=== PATIENT | female | born 1965 | race Caucasian/White ===

== ENCOUNTER → 2018-05-26 18:47 | Outpatient (CLI) | payer MEDICARE, MEDICAID ==
[2018-05-26 19:17] LABS: T4 THYROXINE 11.3 ug/dL (4.7-13.3); THYROID STIMULATING HORMONE 0.9 uIU/mL (0.36-3.74)
== END | disposition home or self-care (01) ==
LOC: D.LABREF 18:47
PROVIDERS: Internal Medicine Cardiovascular Disease
DX: I10 Essential (primary) hypertension (principal)

== ENCOUNTER → 2019-02-19 08:51 | Outpatient (CLI) | payer MEDICARE, MEDICAID | END | disposition home or self-care (01) | LOC: D.HCCARDIO 08:51 | PROVIDERS: ATTEND Internal Medicine Cardiovascular Disease | DX: I10 Essential (primary) hypertension (principal) ==

== ENCOUNTER 2020-01-03 18:42 | Inpatient (IN) | payer MEDICARE, MEDICAID ==
[~2020-01-03] VITALS: Ht 157.5 cm; Wt 63.6 kg
[2020-01-03] MEDS ORDERED: PACERONE200 MG PO (18:49)
[2020-01-03] MEDS ORDERED: KLONOPIN1 MG PO (18:49)
[2020-01-03] MEDS ORDERED: TOPROL XL25 MG PO (18:49)
[2020-01-03] MEDS ORDERED: TRAZODONE HCL150 MG PO (18:49)
[2020-01-03 19:30] LABS: BASOPHILS 0.4 % (0-2); EOSINOPHILS 2.3 % (0-7); HEMATOCRIT 33.7 % (36.0-48.0); HEMOGLOBIN 10.2 g/dL (12-16); IMMATURE GRANULOCYTES 0.3 % (0-5); MCHC 30.3 g/dL (31.0-37.0); MCV 63.8 fL (80.0-100.0); MEAN PLATELET VOLUME 9.3 fL (7.4-10.4); MONOCYTES 4.7 % (2-11); NEUTROPHILS 67.3 % (40-80); PLATELET COUNT 193 10x3/uL (130-400); RBC 5.28 10x6/uL (4.00-5.40); RDW 15.6 % (11.5-14.5); WBC 7.5 10x3/uL (4.8-10.8)
[2020-01-03 19:31] VITALS: BP 143/84
[2020-01-03 19:33] LABS: MCH 19.3 pg (26.0-34.0)
[2020-01-03 19:40] LABS: INR 0.93 (0.85-1.17); PROTIME 12.4 SECONDS (11.6-15.0)
[2020-01-03 19:41] LABS: APTT 33.5 SECONDS (22.8-39.4)
[2020-01-03 19:56] LABS: CALC OSMOLALITY 288 mosm/kg (275-300); CALCIUM 8.7 mg/dL (8.5-10.1); CARBON DIOXIDE 26.7 mmol/L (21.0-32.0); CHLORIDE - SERUM 109 mmol/L (98-107); CREATININE - SERUM 1.1 mg/dL (0.6-1.3); GLUCOSE 99 mg/dL (74-106); POTASSIUM - SERUM 3.3 mmol/L (3.5-5.1); SODIUM 146 mmol/L (136-145); UREA NITROGEN 8 mg/dL (7-18); eGFR NON AFRICAN AMERICAN 55 mL/min (90-120)
[2020-01-03 20:13] LABS: ALBUMIN 3.2 g/dL (3.4-5.0); ALKALINE PHOSPHATASE 84 U/L (30-120); ALT (SGPT) 20 U/L (10-68); BILIRUBIN - TOTAL 0.31 mg/dL (0.2-1.3); CKMB 0.3 U/L (0.0-3.6); CREATINE KINASE 38 UL (21-215); PRO BNP 355 pg/mL (0-125); PROTEIN - SERUM 6.8 g/dL (6.4-8.2)
[2020-01-03 20:14] LABS: TROPONIN-I < 0.017 ng/mL (0.000-0.060)
[2020-01-03 20:25] VITALS: BP 158/89
--- NOTE | 2020-01-03 20:25 | NUR ---
PT LAYING IN BED. VSS. RESPIRAITONS ARE EVEN AND UNLABORED. NO DISTRESS NOTED. WILL CONTINUE TO MONITOR PATIENT.
[2020-01-04] VITALS (7 sets, daily range): BP systolic 127–161; BP diastolic 73–94; Ht 157.5 cm; Wt 63.6 kg
--- NOTE | 2020-01-04 00:30 | NUR ---
ADMITTED TO MED SURG UNIT.
[2020-01-04] MEDS ORDERED: HYDROCODON-ACE1 EA10 PO (00:48)
[2020-01-04] MEDS ORDERED: ABILIFY10 MG PO (00:51)
--- NOTE | 2020-01-04 01:00 | NUR ---
TOUCH UP WORKER DENIED TELEMETRY AT THIS TIME.
--- NOTE | 2020-01-04 01:41 | NUR ---
DR. JACKSON NOTIFIED AND REVIEWED PT'S BEHAVIOR AND ASSESSMENT RESULTS. PT IS A LOW RISK PER DR. JACKSON. DR. JACKSON STATED TO GIVE RESOURCES TO PT AT TIME OF DISCHARGE. NO FURTHER ORDERS AT THIS TIME. RESOURCES REVIEWED WITH PT AND SHE VERBALIZED UNDERSTANDING.
--- NOTE | 2020-01-04 07:27 | NUR ---
PT K+ IS 3.3 THIS MORNING, ADDED EP TO PT MAR AND WILL REPLACE K+. NO OTHER NEEDS AT THIS TIME VOICED BY PT, WILL CONTINUE WITH PLAN OF CARE
[2020-01-04 09:21] LABS: BASOPHILS 0 % (0-2); EOSINOPHILS 0 % (0-7); HEMATOCRIT 35.2 % (36.0-48.0); HEMOGLOBIN 10.7 g/dL (12-16); IMMATURE GRANULOCYTES 0.8 % (0-5); LYMPHOCYTES 9.7 % (15-50); MCHC 30.4 g/dL (31.0-37.0); MCV 62.9 fL (80.0-100.0); MEAN PLATELET VOLUME 9.4 fL (7.4-10.4); MONOCYTES 0.7 % (2-11); NEUTROPHILS 88.8 % (40-80); PLATELET COUNT 206 10x3/uL (130-400); RDW 15.7 % (11.5-14.5); WBC 7.3 10x3/uL (4.8-10.8)
--- NOTE | 2020-01-04 09:21 | NUR ---
PT INQUIRED ON PAIN MEDICATION WELL HOME MEDS BEING RESTARTED PT STATED SHE NEEDS HER ANXIETY MEDICATION BUT WAS UNABLE TO TELL ME DOSAGE ON THAT WELL ANOTHER MEDICATION SHE IS ON. TOLD PT I WILL CALL HER PHARMACY TO GET CORRECT DOSAGE SO WE MAY RESTART HER MEDICATIONS. ASSISTED PT TO RESTROOM, NO OTHER NEEDS VOICED, RAYNAMTINUE WITH PLAN OF CARE
[2020-01-04 09:22] LABS: MCH 19.1 pg (26.0-34.0)
[2020-01-04 09:35] LABS: ALBUMIN 3.2 g/dL (3.4-5.0); ANION GAP 12.4 mmol/L (8-16); BILIRUBIN - TOTAL 0.3 mg/dL (0.2-1.3); CALCIUM 9.1 mg/dL (8.5-10.1); CREATININE - SERUM 1.1 mg/dL (0.6-1.3); POTASSIUM - SERUM 3.4 mmol/L (3.5-5.1); PROTEIN - SERUM 7.3 g/dL (6.4-8.2)
[2020-01-04] MEDS ORDERED: PREVALITE POWD231 GM PO (21:40)
[2020-01-04] MEDS ORDERED: KEPPRA1000 MG PO (21:40)
--- NOTE | 2020-01-04 21:48 | NUR ---
PAGED MARLA RILEY APN PER PT REQUEST FOR HOME MEDS THAT SHE WANTS. SEE MAR FOR NEW ORDERS.
[2020-01-05 01:07] VITALS: BP 130/77
[2020-01-05 06:00] VITALS: BP 141/87
[2020-01-05 07:04] LABS: BASOPHILS 0.1 % (0-2); EOSINOPHILS 0.4 % (0-7); HEMATOCRIT 31.8 % (36.0-48.0); HEMOGLOBIN 9.3 g/dL (12-16); IMMATURE GRANULOCYTES 0.4 % (0-5); LYMPHOCYTES 33.7 % (15-50); MCHC 29.2 g/dL (31.0-37.0); MCV 64.5 fL (80.0-100.0); MEAN PLATELET VOLUME 9.2 fL (7.4-10.4); MONOCYTES 4.6 % (2-11); NEUTROPHILS 60.8 % (40-80); PLATELET COUNT 199 10x3/uL (130-400); RBC 4.93 10x6/uL (4.00-5.40); RDW 15.8 % (11.5-14.5); WBC 7.2 10x3/uL (4.8-10.8)
[2020-01-05 07:05] LABS: MCH 18.9 pg (26.0-34.0)
[2020-01-05 07:33] LABS: ALBUMIN 2.9 g/dL (3.4-5.0); ANION GAP 13.3 mmol/L (8-16); BILIRUBIN - TOTAL 0.23 mg/dL (0.2-1.3); CALCIUM 8.4 mg/dL (8.5-10.1); CARBON DIOXIDE 25.9 mmol/L (21.0-32.0); CREATININE - SERUM 1.1 mg/dL (0.6-1.3); POTASSIUM - SERUM 3.2 mmol/L (3.5-5.1); PROTEIN - SERUM 5.9 g/dL (6.4-8.2)
--- NOTE | 2020-01-05 08:00 | NUR ---
PATIENT IN BED WITH IV INTACT. EYES CLOSED RESTING QUIETLY. CALL LIGHT WITHIN REACH.
[2020-01-05 09:12] VITALS: BP 152/85
--- NOTE | 2020-01-05 10:05 | MORECARE ---
CASE MANAGEMENT DISCHARGE SUMMARY PATIENT: SJ POWELL UNIT: [id number] ADM DATE: 01/03/20 AGE: 54 : 63 SEX: F ROOM/BED: D.2223 AUTHOR: LINDEN LAWS PHYSICIAN: REFERRING PHYSICIAN: MELODY SALINAS MD DATE OF SERVICE: 01/05/20 Discharge Plan Patient Name: SJ POWELL Facility: [facility]:[place] : 1965 Planned Disposition: Home Anticipated Discharge Date: Discharge Date: Expected LOS: Initial Reviewer: [email or web address] Initial Review Date: 01/05/2020 Generated: 01/05/20 11:04 am Patient Name: SJ POWELL Page 97790 at 1005 All edits/amendments must be made on the electronic document DICTATION DATE: 01/05/20 1004 FABRIC INSPECTOR: STORM 01/05/20 1004 RPT#: [id number] DC DATE: STATUS: ADM IN [facility] [address] [place] [address] END OF REPORT
--- NOTE | 2020-01-05 10:13 | MORECARE ---
CASE MANAGEMENT DISCHARGE SUMMARY PATIENT: SJ POWELL UNIT: [id number] ADM DATE: 01/03/20 AGE: 54 : 63 SEX: F ROOM/BED: D.2223 AUTHOR: EUSEBIA,DOC PHYSICIAN: REFERRING PHYSICIAN: MELODY SALINAS MD DATE OF SERVICE: 01/05/20 Discharge Plan Patient Name: SJ POWELL Facility: [facility]:[place] : 1965 Planned Disposition: Home Anticipated Discharge Date: Discharge Date: Expected LOS: Initial Reviewer: [email or web address] Initial Review Date: 01/05/2020 Generated: 01/05/20 11:13 am Comments DCP- Discharge Planning Updated by [email or web address]: Katerine Bey on 01/05/20 9:[address] Patient Name: SJ POWELL Admission Status: ER Accout number: [id number] Admission Date: 01-03-2020 : 1965 Admission Diagnosis: Attending: MELODY SALINAS Current LOS: 2 Anticipated DC Date: Planned Disposition: Home Primary Insurance: [facility] MEDICARE SOLUTIONS Discharge Planning Comments: CM met with patient to complete initial dc planning assessment. CM educated patient on the CM role and verbal consent given by patient to complete assessment. Patient lives at home with her fianc?e. At discharge patient plans to return and feels this is a safe discharge. Home address and phone number verified on face sheet. CM discussed availability of home health, rehab services, and medical equipment. Patient denied known discharge needs at this time. States she wears oxygen at 2 liters NC at night and has a nebulizer from [employer]. CM will continue to follow and will assist as needed with dc plans/needs. Client Evaluator: Katerine Bey DCPIA - Discharge Planning Initial Assessment Updated by [email or web address]: Katerine Bey on 01/05/20 10:05 am * Is the patient Alert and Oriented? Yes * How many steps to enter\exit or inside your home? 0/0 * PCP Dr. Teixeira * Pharmacy [facility] * Preadmission Environment Home with Family * ADLs Independent * Equipment Nebulizer Oxygen * List name and contact numbers for known caregivers / representatives who currently or will assist patient after discharge: Juan M Ochoa - No phone Nani Penn - DTR - [phone] * Verbal permission to speak to the caregivers and representatives has been obtained from the patient. Yes * Community resources currently utilized None * Please name any agencies selected above. [employer] is DME for oxygen and nebulizer * Additional services required to return to the preadmission environment? No * Can the patient safely return to the preadmission environment? Yes * Has this patient been hospitalized within the prior 30 days at any hospital? No Last DP export: 01/05/20 9:05 a Patient Name: SJ POWELL Page 97924 at 1013 All edits/amendments must be made on the electronic document DICTATION DATE: 01/05/20 1013 DISTRICT MEDICAL EXAMINER: STORM 01/05/20 1013 RPT#: [id number] DC DATE: STATUS: ADM IN [facility] [address] [place] [address] END OF REPORT
[2020-01-05] MEDS ORDERED: MUCINEX600 MG PO (12:21)
[2020-01-05] MEDS ORDERED: FLORAJEN3 CAPS460 MG PO (12:21)
[2020-01-05] MEDS ORDERED: ZITHROMAX500 MG PO (12:21)
[2020-01-05] MEDS ORDERED: TESSALON PERLE100 MG PO (12:21)
[2020-01-05] MEDS ORDERED: OMNICEF300 MG PO (12:22)
[2020-01-05] MEDS ORDERED: Nicoderm [PBKC] TRANSDERM (12:22)
--- NOTE | 2020-01-05 12:53 | MORECARE ---
CASE MANAGEMENT DISCHARGE SUMMARY PATIENT: SJ POWELL UNIT: [id number] ADM DATE: 01/03/20 AGE: 54 : 63 SEX: F ROOM/BED: D.2223 AUTHOR: EUSEBAI,DOC PHYSICIAN: REFERRING PHYSICIAN: MELODY SALINAS MD DATE OF SERVICE: 01/05/20 Discharge Plan Patient Name: SJ POWELL Facility: [facility]:[place] : 1965 Planned Disposition: Home Anticipated Discharge Date: Discharge Date: Expected LOS: Initial Reviewer: [email or web address] Initial Review Date: 01/05/2020 Generated: 01/05/20 1:53 pm Comments DCP- Discharge Planning Updated by [email or web address]: Katerine Bey on 01/05/20 11:[address] Patient Name: SJ POWELL Encounter No: [id number] : 1965 Primary Insurance: [facility] MEDICARE SOLUTIONS Anticipated DC Date: Planned Disposition: Home External Planned Provider: : DCP follow-up note: Patient in agreement with discharge plan. No changes to plan. Case management will follow and assist as needed. Katerine Bey DCP- Discharge Planning Updated by [email or web address]: Katerine Bey on 01/05/20 9:[address] Patient Name: SJ POWELL Admission Status: ER Accout number: [id number] Admission Date: 01-03-2020 : 1965 Admission Diagnosis: Attending: MELODY SALINAS Current LOS: 2 Anticipated DC Date: Planned Disposition: Home Primary Insurance: [facility] MEDICARE SOLUTIONS Discharge Planning Comments: CM met with patient to complete initial dc planning assessment. CM educated patient on the CM role and verbal consent given by patient to complete assessment. Patient lives at home with her fianc?e. At discharge patient plans to return and feels this is a safe discharge. Home address and phone number verified on face sheet. CM discussed availability of home health, rehab services, and medical equipment. Patient denied known discharge needs at this time. States she wears oxygen at 2 liters NC at night and has a nebulizer from [employer]. CM will continue to follow and will assist as needed with dc plans/needs. Threshing Machine Operator: Katerine Bey DCPIA - Discharge Planning Initial Assessment Updated by [email or web address]: Katerine Maida on 01/05/20 10:05 am * Is the patient Alert and Oriented? Yes * How many steps to enter\exit or inside your home? 0/0 * PCP Dr. Teixeira * Pharmacy [facility] * Preadmission Environment Home with Family * ADLs Independent * Equipment Nebulizer Oxygen * List name and contact numbers for known caregivers / representatives who currently or will assist patient after discharge: Juan M Valerio - Gabriela - No phone Nani Penn - DTR - [phone] * Verbal permission to speak to the caregivers and representatives has been obtained from the patient. Yes * Community resources currently utilized None * Please name any agencies selected above. [employer] is DME for oxygen and nebulizer * Additional services required to return to the preadmission environment? No * Can the patient safely return to the preadmission environment? Yes * Has this patient been hospitalized within the prior 30 days at any hospital? No Last DP export: 01/05/20 9:13 a Patient Name: SJ POWELL Page 19846 at 1253 All edits/amendments must be made on the electronic document DICTATION DATE: 01/05/20 125 DOOR CAPTAIN: STORM 01/05/20 1253 RPT#: [id number] DC DATE: STATUS: ADM IN [facility] [address] [place] [address] END OF REPORT
--- NOTE | 2020-01-05 14:47 | NUR ---
PATIENT RECIEVED DC INSTRUCTIONS. NO QUESTIONS AT THIS TIME. IV REMOVED WITH CATH TIP INTACT. EXPLAINED TO AIRPLANE RIGGER PRESCRIPTIONS FROM [facility]. VERBALIZED UNDERSTANDING. FAMILY AT SIDE. CALL LIGHT WITHIN REACH.
--- NOTE | 2020-01-05 15:05 | NUR ---
ESCORTED PATIENT OUT OF HOSPITAL VIA WC AT THIS TIME WITH PERSONAL BELONGINGS TO PRIVATE VEHICLE WITH FAMILY.
--- NOTE | 2020-01-07 08:19 | MORECARE ---
CASE MANAGEMENT DISCHARGE SUMMARY PATIENT: SJ POWELL UNIT: [id number] ADM DATE: 01/03/20 AGE: 54 : 63 SEX: F ROOM/BED: D.2223 AUTHOR: EUSEBIA,DOC PHYSICIAN: REFERRING PHYSICIAN: MELODY SALINAS MD DATE OF SERVICE: 01/07/20 Discharge Plan Patient Name: SJ POWELL Facility: [facility]:[place] : 1965 Planned Disposition: Home Anticipated Discharge Date: Discharge Date: 01/05/2020 Expected LOS: Initial Reviewer: [email or web address] Initial Review Date: 01/05/2020 Generated: 01/07/20 9:18 am Comments DCP- Discharge Planning Updated by [email or web address]: Katerine Bey on 01/05/20 11:[address] Patient Name: SJ POWELL Encounter No: [id number] : 1965 Primary Insurance: [facility] MEDICARE SOLUTIONS Anticipated DC Date: Planned Disposition: Home External Planned Provider: : DCP follow-up note: Patient in agreement with discharge plan. No changes to plan. Case management will follow and assist as needed. Katerine Bey DCP- Discharge Planning Updated by [email or web address]: Katerine Bey on 01/05/20 9:[address] Patient Name: SJ POWELL Admission Status: ER Accout number: [id number] Admission Date: 01-03-2020 : 1965 Admission Diagnosis: Attending: MELODY SALINAS Current LOS: 2 Anticipated DC Date: Planned Disposition: Home Primary Insurance: [facility] MEDICARE SOLUTIONS Discharge Planning Comments: CM met with patient to complete initial dc planning assessment. CM educated patient on the CM role and verbal consent given by patient to complete assessment. Patient lives at home with her fianc?e. At discharge patient plans to return and feels this is a safe discharge. Home address and phone number verified on face sheet. CM discussed availability of home health, rehab services, and medical equipment. Patient denied known discharge needs at this time. States she wears oxygen at 2 liters NC at night and has a nebulizer from [employer]. CM will continue to follow and will assist as needed with dc plans/needs. Service Representative: Katerine Bey DCPIA - Discharge Planning Initial Assessment Updated by [email or web address]: Katerine Maida on 01/05/20 10:05 am * Is the patient Alert and Oriented? Yes * How many steps to enter\exit or inside your home? 0/0 * PCP Dr. Teixeira * Pharmacy [facility] * Preadmission Environment Home with Family * ADLs Independent * Equipment Nebulizer Oxygen * List name and contact numbers for known caregivers / representatives who currently or will assist patient after discharge: Juan M Ochoa - No phone Nani Penn - DTR - [phone] * Verbal permission to speak to the caregivers and representatives has been obtained from the patient. Yes * Community resources currently utilized None * Please name any agencies selected above. [employer] is DME for oxygen and nebulizer * Additional services required to return to the preadmission environment? No * Can the patient safely return to the preadmission environment? Yes * Has this patient been hospitalized within the prior 30 days at any hospital? No Last DP export: 01/05/20 11:53 a Patient Name: SJ POWELL Page 22941 at 0819 All edits/amendments must be made on the electronic document DICTATION DATE: 01/07/20817 DATA SECURITY ANALYST: STORM 01/07/20817 RPT#: [id number] DC DATE:01/05/20 STATUS: DIS IN [facility] [address] [place] [address] END OF REPORT
== END 2020-01-05 15:13 | disposition home or self-care (01) | DRG 193 ==
LOC: D.ER 18:42 → D.MS 23:42
PROVIDERS: Family Medicine; ADMIT Internal Medicine Nephrology; ATTEND Internal Medicine Nephrology
DX: J18.9 Pneumonia, unspecified organism (principal); J96.21 Acute and chronic respiratory failure with hypoxia; F17.203 Nicotine dependence unspecified, with withdrawal; E87.1 Hypo-osmolality and hyponatremia; I50.32 Chronic diastolic (congestive) heart failure; J40 Bronchitis, not specified as acute or chronic; D50.9 Iron deficiency anemia, unspecified; I11.0 Hypertensive heart disease with heart failure; E78.5 Hyperlipidemia, unspecified; I27.20 Pulmonary hypertension, unspecified; M54.9 Dorsalgia, unspecified; F41.8 Other specified anxiety disorders; F43.10 Post-traumatic stress disorder, unspecified

== ENCOUNTER 2021-01-07 16:20 | Emergency (ER) | payer MEDICARE, MEDICAID ==
[~2021-01-07] VITALS: Ht 157.5 cm; Wt 68.2 kg
[~2021-01-07 16:20] MED LIST: ABILIFY10 MG PO; FLORAJEN3 CAPS460 MG PO; HYDROCODON-ACE1 EA10 PO; KEPPRA1000 MG PO; KLONOPIN1 MG PO; MUCINEX600 MG PO; Nicoderm [PBKC] TRANSDERM; OMNICEF300 MG PO; PACERONE200 MG PO; PREVALITE POWD231 GM PO; TESSALON PERLE100 MG PO; TOPROL XL25 MG PO; TRAZODONE HCL150 MG PO; ZITHROMAX500 MG PO
[2021-01-07 16:25] VITALS: BP 113/64; Ht 157.5 cm; Wt 68.2 kg
== END 2021-01-07 17:16 | disposition home or self-care (01) ==
LOC: D.ER 16:20
DX: M25.561 Pain in right knee (principal); I10 Essential (primary) hypertension; Z86.73 Personal history of transient ischemic attack (TIA), and cerebral infarction without residual deficits; J44.9 Chronic obstructive pulmonary disease, unspecified; Z99.81 Dependence on supplemental oxygen; Z72.0 Tobacco use; X50.1XXA Overexertion from prolonged static or awkward postures, initial encounter; Y93.9 Activity, unspecified; Y92.9 Unspecified place or not applicable

== ENCOUNTER 2021-01-10 08:36 | Inpatient (IN) | payer MEDICARE, MEDICAID ==
[~2021-01-10] VITALS: Ht 157.5 cm; Wt 68.0 kg
--- NOTE | ~2021-01-10 | EC ---
PATIENT:SJ POWELL DATE OF SERVICE: 01/10/21 SEX: F MEDICAL RECORD: [id number] DATE OF : [birth year] LOCATION:D.M2 D.214 AGE OF PATIENT: 55 ADMISSION DATE: 01/10/21 REFERRING PHYSICIAN: INTERPRETING PHYSICIAN: AWILDA SOLO MD ECHOCARDIOGRAM REPORT ECHO CHARGES 4 ECHO COMPLETE Date: 01/13/21 CLINICAL DIAGNOSIS: SOB, EDEMA, HYPOXIA ECHOCARDIOGRAPHIC MEASUREMENTS (adult normal given) AC root (d.<3.7cm) 3.0 cm LV Septum d (<1.2 cm> 0.7 cm Valve Excursion 1.6 cm LV Septum (systole) 1.4 cm Left Atria (s.<4.0cm> 4.1 cm LVPW d(<1.2cm) 1.1 cm RV (d.<2.3cm) 3.3 cm LVPW (sytole) 1.2 cm LV diastole(<5.6CM) 5.6 cm MV E-F(>70mm/sec) cm LV systole 3.6 cm LVOT Diameter 1.8 cm MV exc.(>10mm) 1.5 cm Est.ejection fraction (50-75%) % DOPPLER: LVIT cm/sec A 128 cm/sec E 111 cm/sec LA cm/sec RVSP 33 mmHg LVOT 118 cm/sec AOP1/2T m/s Asc. Ao 170 cm/sec RVOT 87 cm/sec RA cm/sec PA 120 cm/sec AV Gradient Peak 11.5 mmHg AV Mean 7.1 mmHg AV Area 1.6 cm MV Gradient Peak 8.8 mmHg MV Mean 4.7 mmHg MV Area cm COMMENTS: Turning Machine Operator Helper: Yesenia LOPEZ [employer] Barista: 4 Dr. Solo TAPE# Pericardial Effusion N DATE OF SERVICE: Transthoracic echocardiogram FINDINGS: 1. The left ventricle has normal function, ejection fraction 55%. There is mild concentric left ventricular hypertrophy. There is evidence of diastolic dysfunction. 2. The right ventricle is mildly dilated with normal function. 3. The left atrium is mildly dilated. ECHOCARDIOGRAM REPORT [id number] SJ POWELL 4. The right atrium is mildly dilated, but normal structure and function. 5. The aortic valve is normal structure and function. 6. The mitral valve has normal structure and function with mild mitral regurgitation. 7. The tricuspid valve is normal. 8. Pulmonic valve is normal. There is no obvious ASD or VSD vegetation or thrombus. There is no pleural effusion. There is no evidence of pericardial effusion. IMPRESSION: The patient has mild concentric left ventricular hypertrophy and mild diastolic dysfunction but otherwise normal echocardiogram. TRANSINT:[id number] Voice Confirmation ID: [id number] DOCUMENT ID: [id number] AWILDA SOLO MD CC: [id number] DICTATION DATE: 01/15/21 1327 HYSTER MACHINE OPERATOR: 01/15/212118 ADM IN [place] [id number] [place] [id number]
[2021-01-10] MEDS ORDERED: ZOVIRAX200 MG (08:48)
[2021-01-10] MEDS ORDERED: METOPROLOL TART50 MG (08:48)
[2021-01-10 09:24] LABS: BASOPHILS 0.1 % (0-2); EOSINOPHILS 1.7 % (0-7); HEMATOCRIT 32.8 % (36.0-48.0); HEMOGLOBIN 10.3 g/dL (12-16); IMMATURE GRANULOCYTES 0.1 % (0-5); LYMPHOCYTE ABS# 1.44 10x3/uL (1.18-3.74); LYMPHOCYTES 20.7 % (15-50); MCHC 31.4 g/dL (31.0-37.0); MCV 61.7 fL (80.0-100.0); MONOCYTES 6.6 % (2-11); NEUTROPHIL ABS# 4.92 10x3/uL (1.56-6.13); NEUTROPHILS 70.8 % (40-80); PLATELET COUNT 198 10x3/uL (130-400); RBC 5.32 10x6/uL (4.00-5.40); RDW 15.3 % (11.5-14.5)
[2021-01-10 09:28] LABS: MCH 19.4 pg (26.0-34.0)
[2021-01-10 09:37] LABS: ALBUMIN 2.5 g/dL (3.4-5.0); ALKALINE PHOSPHATASE 97 U/L (30-120); ALT (SGPT) 20 U/L (10-68); BILIRUBIN - TOTAL 0.64 mg/dL (0.2-1.3); CALC OSMOLALITY 289 mosm/kg (275-300); CARBON DIOXIDE 29.9 mmol/L (21.0-32.0); CHLORIDE - SERUM 105 mmol/L (98-107); CKMB 0.1 U/L (0.0-3.6); CREATINE KINASE 73 UL (21-215); CREATININE - SERUM 1.5 mg/dL (0.6-1.3); GLUCOSE 102 mg/dL (74-106); PRO BNP 3217 pg/mL (0-125); PROTEIN - SERUM 5.9 g/dL (6.4-8.2); SODIUM 146 mmol/L (136-145); TROPONIN-I < 0.017 ng/mL (0.000-0.060); UREA NITROGEN 11 mg/dL (7-18); eGFR NON AFRICAN AMERICAN 38 mL/min (90-120)
[2021-01-10 09:38] LABS: POTASSIUM - SERUM 2.3 mmol/L (3.5-5.1)
[2021-01-10 09:59] LABS: INR 1.21 (0.85-1.17); PROTIME 14.2 SECONDS (11.6-15.0)
[2021-01-10 10:00] LABS: APTT 42.2 SECONDS (22.8-39.4)
[2021-01-10 14:02] LABS: SARS-CoV-2 ANTIGEN NEGATIVE- SARS-COV-2 (NEGATIVE)
--- NOTE | 2021-01-10 15:00 | NUR ---
RECEIVED PATIENT BACK FROM ER VIA WHEELCHAIR. PATIENT WALKS WELL FROM CHAIR TO BED. PLAN OF CARE REVIEWED AND ASSESSMENT HAS BEEN COMPLETED. PATIENT IS SLOW TO SPEAK AND ANSWER QUESTIONS. CALL LIGHT IN REACH.
[2021-01-10 15:58] VITALS: BP 139/79; BMI 27.5
[2021-01-10 20:00] VITALS: BP 121/69
[2021-01-11 04:00] VITALS: BP 136/67
--- NOTE | 2021-01-11 06:20 | NUR ---
Pt is A&OX3, can be confused as to time. Verbalizes wants/needs but does have some difficulty and hesitation with same. Using call light appropriately to request assist. Continues on O2 via NC without dyspnea observed. Does have some SOBOE to the bathroom. In bed resting at this time.
[2021-01-11 06:25] LABS: ANION GAP 12.6 mmol/L (8-16); CALCIUM 8.2 mg/dL (8.5-10.1); CARBON DIOXIDE 26.8 mmol/L (21.0-32.0); CREATININE - SERUM 1.1 mg/dL (0.6-1.3); MAGNESIUM - SERUM 1.9 mg/dL (1.8-2.4); PHOSPHOROUS 3.3 mg/dL (2.5-4.9)
[2021-01-11 06:26] LABS: POTASSIUM - SERUM 2.4 mmol/L (3.5-5.1)
[2021-01-11 06:29] LABS: BASOPHILS 0 % (0-2); EOSINOPHILS 0 % (0-7); HEMATOCRIT 29.7 % (36.0-48.0); HEMOGLOBIN 9.5 g/dL (12-16); IMMATURE GRANULOCYTES 0.3 % (0-5); LYMPHOCYTE ABS# 0.49 10x3/uL (1.18-3.74); LYMPHOCYTES 13.8 % (15-50); MCH 19.5 pg (26.0-34.0); MCV 61.1 fL (80.0-100.0); NEUTROPHILS 81.9 % (40-80); PLATELET COUNT 175 10x3/uL (130-400); RBC 4.86 10x6/uL (4.00-5.40); RDW 15.2 % (11.5-14.5); WBC 3.5 10x3/uL (4.8-10.8)
--- NOTE | 2021-01-11 06:37 | NUR ---
Pt has a critical k+ of 2.4. Patsy GARCIA paged o/c for . NO rec'd to place on electrolyte protocol.
[2021-01-11 07:59] VITALS: BP 125/67
--- NOTE | 2021-01-11 08:09 | NUR ---
PO MEDS GIVEN TO PATIENT AT THIS TIME. SHES SITTING UP TO SIDE OF BED. IV IS BAD. NURSE TO RESTART SOON. PLAN OF CARE REVIEWED AND ASSESSMENT HAS BEEN COMPLETED. CALL LIGHT IN REACH
--- NOTE | 2021-01-11 09:40 | NUR ---
NURSE TALKS WITH PT AFTER SHE MENTIONS TAKING DIARRHEA MEDICATION. NURSE CALLS HER PHARMACY AND CALLS MD FOR ORDER OF MED THAT PATIENT TAKES AT HOME.
--- NOTE | 2021-01-11 10:33 | NUR ---
NURSE CLEANS STOMA SITE AND PUTS NEW WAFER AND BAG ON COLOSTOMY. PATIENT IS WHEEZING AT THIS TIME. STATES SHE IS HAVING A HARD TIME BREATHING. NURSE TO CALL .
--- NOTE | 2021-01-11 10:35 | NUR ---
NURSE TALKS WITH CHAR MARR AND HE ORDER ALBUTEROL UPDRAFT, BID PRN
[2021-01-11 10:52] VITALS: BP 112/61
--- NOTE | 2021-01-11 11:09 | NUR ---
NURSE WALKS PATIENT TO RESTROOM. PATIENT IS ABLE TO DO ALL THINGS FOR SELF, BUT JUST SLOWLY. PATIENT DID HAVE A LITTLE INCONTINENCE. CALL LIGHT IN REACH ONCE PATIENT BACK IN BED.
--- NOTE | 2021-01-11 13:19 | NUR ---
PATIENT'S DAUGHTER BEAN HODGE HAS CALLED TO TALK TO NURSE ABOUT PATIENT.NURSE GOT THE OKAY FROM PATIENT.
--- NOTE | 2021-01-11 13:45 | NUR ---
RIGHT UPPER ARM 20 GAUGE. ULTRASOUND GUIDED.
[2021-01-11 14:58] VITALS: Ht 157.5 cm; Wt 68.0 kg
[2021-01-11 15:44] VITALS: BP 120/69
[2021-01-11 20:00] VITALS: BP 124/71
--- NOTE | 2021-01-11 20:22 | NUR ---
LAB CALLED CRITICAL K+. IV K+ STARTED. PT A/O X4. RR E/U. NO S/S OF DISTRESS. TELE-71 SR. BED LOW CALL LIGHT WITHIN REACH. WILL CONTINUE TO MONITOR.
--- NOTE | 2021-01-12 02:28 | NUR ---
I have reviewed this patient and I concur with the Shift Assessment completed by the Licensed Practical Nurse today this shift.
[2021-01-12 04:00] VITALS: BP 125/70
--- NOTE | 2021-01-12 07:00 | NUR ---
Lying in bed, awake/alert/oriented, t/r self ad kashmir, cont of b/b with brp's with assist ad kashmir, denies pain/other discomfort at this time, call light/phone/water within reach, no s/s of acute distress observed.
[2021-01-12 07:17] LABS: C-REACTIVE PROTEIN 5.8 mg/dL (0.0-0.9)
[2021-01-12 09:57] VITALS: BP 125/65
[2021-01-12 10:04] LABS: BASOPHILS 0 % (0-2); EOSINOPHILS 0 % (0-7); HEMATOCRIT 28.8 % (36.0-48.0); IMMATURE GRANULOCYTES 0.5 % (0-5); LYMPHOCYTE ABS# 0.62 10x3/uL (1.18-3.74); LYMPHOCYTES 7.2 % (15-50); MCHC 31.3 g/dL (31.0-37.0); MCV 61.4 fL (80.0-100.0); MONOCYTES 3.5 % (2-11); NEUTROPHILS 88.8 % (40-80); PLATELET COUNT 176 10x3/uL (130-400); RBC 4.69 10x6/uL (4.00-5.40); RDW 15.3 % (11.5-14.5)
[2021-01-12 10:05] LABS: MCH 19.2 pg (26.0-34.0); WBC 8.7 10x3/uL (4.8-10.8)
[2021-01-12 10:14] LABS: ALKALINE PHOSPHATASE 74 U/L (30-120); ALT (SGPT) 16 U/L (10-68); BILIRUBIN - TOTAL 0.25 mg/dL (0.2-1.3); CALC OSMOLALITY 290 mosm/kg (275-300); CALCIUM 8.4 mg/dL (8.5-10.1); CARBON DIOXIDE 23.9 mmol/L (21.0-32.0); CHLORIDE - SERUM 110 mmol/L (98-107); CREATININE - SERUM 1.1 mg/dL (0.6-1.3); GLUCOSE 119 mg/dL (74-106); PROTEIN - SERUM 5.4 g/dL (6.4-8.2); SODIUM 145 mmol/L (136-145); UREA NITROGEN 14 mg/dL (7-18); eGFR NON AFRICAN AMERICAN 54 mL/min (90-120)
--- NOTE | 2021-01-12 17:00 | NUR ---
O2 down to 70s, changed to HF @ 10 over 15 min period with lots of coaching to breathe through her nose and blow out her mouth, O2 sats finally at 95%, notified Clayton with RT who came to assess and was only able to decrease back to 9 lpm.
[2021-01-12 17:28] VITALS: BP 111/71
--- NOTE | 2021-01-12 17:29 | NUR ---
Paged Dr. Chaidez.
--- NOTE | 2021-01-12 17:30 | NUR ---
Dr. Chaidez on floor, updated on pt condition, Dr. Chaidez examining, waiting for orders.
[2021-01-12 19:26] VITALS: BP 120/69
--- NOTE | 2021-01-12 19:30 | NUR ---
PT IN BED, AAO X 2, PT RESP EVEN AND UNLABORED, NO DISTRESS NOTED, CL IN REACH, SR UP X 2.
[2021-01-13] VITALS: BP 116/67
--- NOTE | 2021-01-13 02:29 | NUR ---
I have reviewed this patient and I concur with the Shift Assessment completed by the Licensed Practical Nurse today this shift.
[2021-01-13 03:59] VITALS: BP 125/71
--- NOTE | 2021-01-13 07:40 | NUR ---
Lying in bed, awake/alert/oriented, t/r self ad kashmir with encouragement, cont of b/b with bsc with assist ad kashmir, denies pain/other discomfort at this time, call light/phone/water within reach, no s/s of acute distress observed.
[2021-01-13 08:39] VITALS: BP 106/55
[2021-01-13 11:24] VITALS: BP 125/69
--- NOTE | 2021-01-13 13:35 | NUR ---
SOB, stopped ABT infusion, O2 sat 98% on 14 HF, vs - 98.3, 24, 85%, 86, 117/64; ABGs done...PO2 48%, Ph 7.46, CO2 37, Bicarb 26, sat 86%, K+ 2.8; paged Dr. Bolden
--- NOTE | 2021-01-13 13:55 | NUR ---
Reported NIA to [facility] for Bipap.
--- NOTE | 2021-01-13 14:20 | NUR ---
Nutrition Follow-up: Pt reports not eating much this AM because she did not like the food provided. States that overall she has been eating >50% of meals. Diet: Regular No PO intake recorded No new wt; last wt: 150# (01/11) Labs reviewed Meds noted: Lasix, KDur, Lomotil, zinc sulfate, vit C, vit D, electrolyte protocol -Encourage PO intake and honor food preferences. -Offer nutrition supplements. -Need new wt. -RD will follow up within 3-5 days.
--- NOTE | 2021-01-13 16:45 | NUR ---
Temp of 101 degrees, gave Tylenol as ordered.
[2021-01-13 20:29] VITALS: BP 117/59
--- NOTE | 2021-01-13 23:47 | NUR ---
REPORT RECEIVED, WILL CONT TO MONITOR. A&O, UP IN BED, DAUGHTER AT BEDSIDE. NO S/S OF DISTRESS OBSERVED. RR EVEN AND UNLABORED ON BIPAP 60%. BED LOCKED AND LOWERED, CL IN REACH. ASSESSMENT COMPLETED AT THIS TIME. WILL CONT TO MONITOR.
[2021-01-14 00:46] VITALS: BP 129/79
[2021-01-14 05:53] VITALS: BP 129/76
--- NOTE | 2021-01-14 07:40 | NUR ---
LYING IN BED, AWAKE/ALERT/ORIENTED, T/R FREQ FOR C/C, PUREWICK CATHETER DRAINING CLEAR YELLOW URINE IN AMPLE AMT TO CDB, CATH CARE PROVIDED WITH DAILY BATH AND PRN, CONT OF BOWEL WITH ASSIST TO BSC/BEDPAN AD [place], DENIES PAIN/OTHER DISCOMFORT AT THIS TIME, CALL LIGHT/PHONE/WATER WITHIN REACH, NO S/S OF ACUTE DISTRESS OBSERVED.
[2021-01-14 08:20] VITALS: BP 108/63
[2021-01-14 09:45] LABS: BASOPHILS 0 % (0-2); EOSINOPHILS 0 % (0-7); HEMATOCRIT 31.2 % (36.0-48.0); HEMOGLOBIN 9.7 g/dL (12-16); IMMATURE GRANULOCYTES 0.3 % (0-5); LYMPHOCYTE ABS# 1.14 10x3/uL (1.18-3.74); LYMPHOCYTES 10.5 % (15-50); MCH 19.2 pg (26.0-34.0); MCHC 31.1 g/dL (31.0-37.0); MCV 61.7 fL (80.0-100.0); MONOCYTES 2.9 % (2-11); NEUTROPHIL ABS# 9.38 10x3/uL (1.56-6.13); NEUTROPHILS 86.3 % (40-80); PLATELET COUNT 165 10x3/uL (130-400); RBC 5.06 10x6/uL (4.00-5.40); RDW 15.3 % (11.5-14.5); WBC 10.9 10x3/uL (4.8-10.8)
[2021-01-14 10:21] LABS: ANION GAP 9.1 mmol/L (8-16); CALCIUM 7.9 mg/dL (8.5-10.1); CARBON DIOXIDE 29.1 mmol/L (21.0-32.0); CREATININE - SERUM 1.2 mg/dL (0.6-1.3); POTASSIUM - SERUM 3.2 mmol/L (3.5-5.1)
[2021-01-14 10:31] LABS: BILIRUBIN - TOTAL 0.49 mg/dL (0.2-1.3); PROTEIN - SERUM 5.4 g/dL (6.4-8.2)
[2021-01-14 12:32] VITALS: BP 112/63
[2021-01-14 15:50] VITALS: BP 96/55
[2021-01-14 20:30] VITALS: BP 102/55
--- NOTE | 2021-01-14 23:00 | NUR ---
MED PASSED WITH APPLESAUCE. PATIENT DESATS TO THE 70'S WHEN BIPAP IS REMOVED FOR BITES. SN INSTRUCTED ON IMPORTANCE OF BIPAP AND SMALL QUICK BITES AND REPLACING BIPAP. PVU. TIDIED UP ROOM. CLIR, BED IN LOWEST POSITION. WILL CONT TO MONITOR.
--- NOTE | 2021-01-15 | NUR ---
SN WARMED UP DINNER TRATY AND FED PATIENT CORN AND TURNIP GREENS, CHICKEN WAS DRY AND HARD TO CHEW. REPLACED BIPAP URGENTLY SATS DROPPED TO THE 70'S. RECOVERS WELL AT 100% WHEN REPLACED. CLIR, BED IN LOWEST POSITION, LIGHTS TUNRD OUT PER PATIENT REQUEST. WILL CONT TO MONITOR.
[2021-01-15 00:30] VITALS: BP 100/52
[2021-01-15 04:30] VITALS: BP 104/57
[2021-01-15 07:23] LABS: ALBUMIN 1.7 g/dL (3.4-5.0); BILIRUBIN - TOTAL 0.39 mg/dL (0.2-1.3); CALCIUM 7.9 mg/dL (8.5-10.1); CARBON DIOXIDE 26.4 mmol/L (21.0-32.0); CREATININE - SERUM 1.4 mg/dL (0.6-1.3); MAGNESIUM - SERUM 1.7 mg/dL (1.8-2.4); POTASSIUM - SERUM 3.4 mmol/L (3.5-5.1); PROTEIN - SERUM 4.8 g/dL (6.4-8.2)
[2021-01-15 07:35] LABS: BASOPHILS 0.1 % (0-2); EOSINOPHILS 2.2 % (0-7); HEMATOCRIT 26.5 % (36.0-48.0); HEMOGLOBIN 8.2 g/dL (12-16); IMMATURE GRANULOCYTES 0.2 % (0-5); LYMPHOCYTE ABS# 1.06 10x3/uL (1.18-3.74); LYMPHOCYTES 10.8 % (15-50); MCHC 30.9 g/dL (31.0-37.0); MCV 61.3 fL (80.0-100.0); MEAN PLATELET VOLUME 9.8 fL (7.4-10.4); MONOCYTES 3.5 % (2-11); NEUTROPHILS 83.2 % (40-80); PLATELET COUNT 137 10x3/uL (130-400); RBC 4.32 10x6/uL (4.00-5.40); WBC 9.9 10x3/uL (4.8-10.8)
--- NOTE | 2021-01-15 07:40 | NUR ---
LYING IN BED, AWAKE/ALERT/ORIENTED, T/R FREQ FOR C/C, PUREWICK EXTERNAL CATH DRAINING CLEAR YELLOW URINE TO CDB IN AMPLE AMT, CATH CARE PROVIDED WITH DAILY BATH AND PRN, CONT OF BOWEL WITH ASSIST WITH BSC/BEDPAN AD [place], PERICARE PROVIDED WITH DAILY BATH AND PRN, DENIES PAIN/OTHER DISCOMFORT AT THIS TIME, CALL LIGHT/PHONE/WATER WITHIN REACH, NO S/S OF ACUTE DISTRESS OBSERVED.
[2021-01-15 07:51] LABS: C-REACTIVE PROTEIN 33.8 mg/dL (0.0-0.9)
--- NOTE | 2021-01-15 08:13 | NUR ---
CALLED [facility] AND REPORTED H/H, WAITING FOR ORDERS.
[2021-01-15 08:26] VITALS: BP 96/54
--- NOTE | 2021-01-15 13:00 | NUR ---
N.O.N. FOR 2ND COVID TESTING.
[2021-01-15 13:21] VITALS: BP 106/63
[2021-01-15 16:16] VITALS: BP 93/45
--- NOTE | 2021-01-15 16:17 | NUR ---
COLLECTED NASOPHARYNGEAL SPECIMEN FOR COVID PCR TEST, TAGGED/BAGGED/SENT TO LAB
--- NOTE | 2021-01-15 16:23 | NUR ---
ON HOLD @ 10:30AM PER RESPIRATORY AND PTS NURSE CLAUDIA. WILL CALL CT WHEN READY PT'S O2 SATS STILL NOT STABLE @ 16:30 , KEEPS DROPPING. NURSE TAYLOR SAYS BETTER TO BE DONE IN AM OF SATURDAY MORNING DUE TO PTS CONDITION.
[2021-01-15 20:00] VITALS: BP 106/55
--- NOTE | 2021-01-15 21:30 | NUR ---
ASSESSMENT COMPLETE. MEDS PASSED. NO S/S OF ACUTE DISTRESS. CLIR BED IN LOWEST POSITION. WILL CONT TO MONITOR.
[2021-01-16] VITALS: BP 99/53
[2021-01-16 04:00] VITALS: BP 105/64
--- NOTE | 2021-01-16 04:30 | NUR ---
PATIENT ASKING HOW LONG SHE HAS TO WEAR BIPAP. SN NOTIFED RESPIRATORY TO TRY ALTERNATIVE O2 DELIVERY. CHANGED TO HIGH FLOW AT 15L VIA NC. WILL CONT TO MONITOR. CLIR. BED IN LOWEST POSITION. DENIES ANY OTHER NEEDS OR CONCERNS AT THIS TIME.
--- NOTE | 2021-01-16 04:48 | NUR ---
PATIENT STATED THAT SHE WANTED TO HAVE BIPAP REMOVED. CURRENT SPO2 IS 94%. THERE IS REDNESS NOTED ACROSS BRIDGE OF NOSE. PLACED PATIENT ON HFNC @ 15 LPM. PATIENT IS TOLERATING WELL AT THIS TIME. SPO2 IS 92% ON HFNC. WILL REASSESS IN 1 HOUR 0515
--- NOTE | 2021-01-16 05:12 | NUR ---
REASSESSED PATIENT STATUS ON HFNC. CURRENTLY PATIENT IS TOLERATING WELL WITH A SPO2 OF 91-92%. IT IS MY BELIEF THAT THE PATIENT WOULD BENEFIT FROM USE OF VAPOTHERM. RN HAS BEEN MADE AWARE OF CHANGE IN OXYGEN DELIVERY DEVICE.
[2021-01-16 07:18] LABS: BASOPHILS 0.1 % (0-2); EOSINOPHILS 4.4 % (0-7); HEMATOCRIT 30.5 % (36.0-48.0); HEMOGLOBIN 9.2 g/dL (12-16); IMMATURE GRANULOCYTES 0.7 % (0-5); LYMPHOCYTES 11.5 % (15-50); MCHC 30.2 g/dL (31.0-37.0); MCV 62.6 fL (80.0-100.0); MONOCYTES 4.5 % (2-11); NEUTROPHIL ABS# 8.22 10x3/uL (1.56-6.13); NEUTROPHILS 78.8 % (40-80); PLATELET COUNT 119 10x3/uL (130-400); RBC 4.87 10x6/uL (4.00-5.40); RDW 15.2 % (11.5-14.5); WBC 10.4 10x3/uL (4.8-10.8)
[2021-01-16 07:23] LABS: MCH 18.9 pg (26.0-34.0)
[2021-01-16 07:46] VITALS: BP 107/67
[2021-01-16 09:01] LABS: ALBUMIN 1.7 g/dL (3.4-5.0); ANION GAP 14.2 mmol/L (8-16); BILIRUBIN - TOTAL 0.4 mg/dL (0.2-1.3); CALCIUM 8.2 mg/dL (8.5-10.1); MAGNESIUM - SERUM 1.6 mg/dL (1.8-2.4); POTASSIUM - SERUM 4.2 mmol/L (3.5-5.1); PROTEIN - SERUM 5.6 g/dL (6.4-8.2)
[2021-01-16 11:25] VITALS: BP 112/57
--- NOTE | 2021-01-16 16:56 | NUR ---
PATIENT BACK FROM CT
[2021-01-16 20:00] VITALS: BP 134/67
[2021-01-17 04:00] VITALS: BP 123/74
[2021-01-17 07:07] LABS: ALBUMIN 1.7 g/dL (3.4-5.0); ANION GAP 17.7 mmol/L (8-16); BILIRUBIN - TOTAL 0.37 mg/dL (0.2-1.3); CALCIUM 8.2 mg/dL (8.5-10.1); CARBON DIOXIDE 22.1 mmol/L (21.0-32.0); CREATININE - SERUM 0.9 mg/dL (0.6-1.3); MAGNESIUM - SERUM 1.8 mg/dL (1.8-2.4); POTASSIUM - SERUM 4.8 mmol/L (3.5-5.1); PROTEIN - SERUM 5.2 g/dL (6.4-8.2)
[2021-01-17 07:15] LABS: BASOPHILS 0 % (0-2); EOSINOPHILS 0 % (0-7); HEMATOCRIT 28.8 % (36.0-48.0); HEMOGLOBIN 8.8 g/dL (12-16); IMMATURE GRANULOCYTES 0.1 % (0-5); LYMPHOCYTE ABS# 0.39 10x3/uL (1.18-3.74); LYMPHOCYTES 4.6 % (15-50); MCHC 30.6 g/dL (31.0-37.0); MCV 61.8 fL (80.0-100.0); MONOCYTES 0.7 % (2-11); NEUTROPHIL ABS# 7.96 10x3/uL (1.56-6.13); NEUTROPHILS 94.6 % (40-80); RBC 4.66 10x6/uL (4.00-5.40); RDW 15.3 % (11.5-14.5); WBC 8.4 10x3/uL (4.8-10.8)
[2021-01-17 07:17] LABS: MCH 18.9 pg (26.0-34.0); PLATELET COUNT 161 10x3/uL (130-400)
[2021-01-17 08:15] VITALS: BP 141/80
--- NOTE | 2021-01-17 11:35 | NUR ---
NURSE PLACES PATRICIO CATH PER PHYSICIAN ORDER AT THIS TIME.
[2021-01-17 12:25] VITALS: BP 123/73
--- NOTE | 2021-01-17 13:21 | NUR ---
Nutrition Reassessment/Follow-up: Pt in droplet isolation; covid pending. Nursing reports pt eating ok but having numerous (mucus) BMs daily, although pt reports that this is normal for her. Diet: Regular No PO intake recorded No new wt; last wt: 150# (01/11) Labs noted: Glu 134, Ca 8.2, Alb 1.7 Meds noted: Florajen, Solumedrol, Lasix, KDur, Lomotil, zinc sulfate, vit C, vit D, NS @ KVO, electrolyte protocol -Nutrition needs unchanged; no new wt available. -Encourage PO intake and honor food preferences. -Need new wt. -RD will follow up within the next 7 days.
[2021-01-17 13:39] LABS: BILIRUBIN NEGATIVE (NEGATIVE); KETONE SMALL mg/dL (NEGATIVE); NITRITE NEGATIVE (NEGATIVE); UROBILINOGEN NORMAL mg/dL (< 2)
[2021-01-17 15:55] VITALS: BP 120/65
[2021-01-17 20:00] VITALS: BP 127/74
--- NOTE | 2021-01-17 20:17 | NUR ---
PT SITTING UP IN BED. PT AAOX4 BUT SLOW TO RESPOND WHICH IS HER BASELINE. PT VITALS WNL, MEDS GIVEN ORDERED. PT RIGHT IJ DRESSING REINFORCED. PT GIVEN BATH AND HAIR WAS COMBED. NEW GOWN, SOCKS, AND SHEET PROVIDED. PT PHONE AND CALL LIGHT WITHIN REACH. PATRICIO BACK EMPTIED AND 1300ML RECOREDED OUTPUT. PT DENIES PAIN OR DISCOMFORT AT THIS TIME. OXYGEN IS IN PLACE AND LIGHTS TURNED OUT PER PT REQUEST. WILL CONTINUE TO MONITOR PT
[2021-01-18] VITALS: BP 122/73
[2021-01-18 04:00] VITALS: BP 112/67
[2021-01-18 08:01] LABS: BASOPHILS 0 % (0-2); EOSINOPHILS 0 % (0-7); HEMATOCRIT 29.1 % (36.0-48.0); HEMOGLOBIN 9.2 g/dL (12-16); IMMATURE GRANULOCYTES 0.2 % (0-5); LYMPHOCYTE ABS# 0.51 10x3/uL (1.18-3.74); LYMPHOCYTES 6.3 % (15-50); MCH 19.1 pg (26.0-34.0); MCHC 31.6 g/dL (31.0-37.0); MCV 60.4 fL (80.0-100.0); MEAN PLATELET VOLUME 9.5 fL (7.4-10.4); MONOCYTES 3.3 % (2-11); NEUTROPHILS 90.2 % (40-80); PLATELET COUNT 221 10x3/uL (130-400); RBC 4.82 10x6/uL (4.00-5.40); RDW 14.9 % (11.5-14.5); WBC 8.1 10x3/uL (4.8-10.8)
[2021-01-18 08:08] VITALS: BP 110/60
[2021-01-18 08:16] LABS: ALBUMIN 1.8 g/dL (3.4-5.0); BILIRUBIN - TOTAL 0.23 mg/dL (0.2-1.3); CALCIUM 8.4 mg/dL (8.5-10.1); CARBON DIOXIDE 25.2 mmol/L (21.0-32.0); CREATININE - SERUM 1.1 mg/dL (0.6-1.3); MAGNESIUM - SERUM 1.9 mg/dL (1.8-2.4); POTASSIUM - SERUM 4.2 mmol/L (3.5-5.1); PROTEIN - SERUM 5.3 g/dL (6.4-8.2); VANCOMYCIN - TROUGH 21.8 ug/mL (10.0-20.0)
--- NOTE | 2021-01-18 08:48 | NUR ---
NURSE CALLS INFECTION CONTROL AND DR FERNANDES, BOTH GIVE THE OKAY TO TAKE PATIENT OUT OF ISOLATION DUE TO NEGATIVE COVID RESULT.
[2021-01-18 11:45] VITALS: BP 128/75
[2021-01-18 16:13] VITALS: BP 146/78
[2021-01-18 18:10] VITALS: BP 117/70
--- NOTE | 2021-01-18 21:00 | NUR ---
REPORT RECEIVED, WILL CONT POC. PT UP IN BED, RESTING. NO S/S OF DISTRESS OBSERVED. RR EVEN & UNLABORED ON BIPAP. BED LOCKED AND LOWERED, CL IN REACH. ASSESSMENT COMPLETED AT THIS TIME. WILL CONT POC.
[2021-01-19] VITALS (7 sets, daily range): BP systolic 110–144; BP diastolic 63–71
[2021-01-19 06:37] LABS: BASOPHILS 0 % (0-2); EOSINOPHILS 0 % (0-7); HEMATOCRIT 29.7 % (36.0-48.0); HEMOGLOBIN 8.9 g/dL (12-16); IMMATURE GRANULOCYTES 0.6 % (0-5); LYMPHOCYTE ABS# 0.51 10x3/uL (1.18-3.74); LYMPHOCYTES 5.7 % (15-50); MONOCYTES 5.8 % (2-11); NEUTROPHIL ABS# 7.94 10x3/uL (1.56-6.13); NEUTROPHILS 87.9 % (40-80); PLATELET COUNT 223 10x3/uL (130-400); RBC 4.79 10x6/uL (4.00-5.40); RDW 15.1 % (11.5-14.5)
[2021-01-19 06:50] LABS: ALBUMIN 1.8 g/dL (3.4-5.0); ANION GAP 11.7 mmol/L (8-16); BILIRUBIN - TOTAL 0.21 mg/dL (0.2-1.3); CALCIUM 8.2 mg/dL (8.5-10.1); CARBON DIOXIDE 26.5 mmol/L (21.0-32.0); CREATININE - SERUM 1.3 mg/dL (0.6-1.3); MCH 18.6 pg (26.0-34.0); POTASSIUM - SERUM 4.2 mmol/L (3.5-5.1); PROTEIN - SERUM 5.5 g/dL (6.4-8.2)
--- NOTE | 2021-01-19 15:17 | NUR ---
WALKED 100 FT ON 8 LITERS 02 A BIT WOBBY WHILE WALKING USED GT BELT
[2021-01-20 04:00] VITALS: BP 117/59
[2021-01-20 06:23] LABS: BASOPHILS 0 % (0-2); EOSINOPHILS 0 % (0-7); HEMATOCRIT 30.7 % (36.0-48.0); HEMOGLOBIN 9.1 g/dL (12-16); IMMATURE GRANULOCYTES 0.7 % (0-5); LYMPHOCYTE ABS# 0.48 10x3/uL (1.18-3.74); LYMPHOCYTES 6.6 % (15-50); MCHC 29.6 g/dL (31.0-37.0); MCV 62.5 fL (80.0-100.0); MEAN PLATELET VOLUME 10.2 fL (7.4-10.4); MONOCYTES 3.4 % (2-11); NEUTROPHIL ABS# 6.52 10x3/uL (1.56-6.13); NEUTROPHILS 89.3 % (40-80); PLATELET COUNT 206 10x3/uL (130-400); RBC 4.91 10x6/uL (4.00-5.40); RDW 15.2 % (11.5-14.5); WBC 7.3 10x3/uL (4.8-10.8)
[2021-01-20 06:26] LABS: MCH 18.5 pg (26.0-34.0)
[2021-01-20 06:31] LABS: ALBUMIN 1.8 g/dL (3.4-5.0); BILIRUBIN - TOTAL 0.23 mg/dL (0.2-1.3); CALCIUM 8.5 mg/dL (8.5-10.1); CARBON DIOXIDE 24.2 mmol/L (21.0-32.0); CREATININE - SERUM 1.3 mg/dL (0.6-1.3); PROTEIN - SERUM 5.4 g/dL (6.4-8.2)
[2021-01-20 06:41] LABS: ANION GAP 13.8 mmol/L (8-16)
[2021-01-20 09:32] VITALS: BP 117/61
--- NOTE | 2021-01-20 13:48 | NUR ---
PT ON LIGHT FREQUENTLY REQUESTING TO GO HOME. QUESTIONED PT ON HOW SHE IS GOING TO TAKE CARE OF HERSELF AT HOME IF SHE CAN'T HERE. STATES THAT HE DAUGHTER WILL HELP HER. "I JUST HAVE SO MUCH TO GET DONE AT HOME." AFTER REMOVING PATRICIO CATHETER. PT STATES THAT SHE WILL JUST GO AHEAD & STAY HERE.
[2021-01-20 15:29] VITALS: BP 121/69
[2021-01-20 22:50] VITALS: BP 120/65
[2021-01-21 05:06] VITALS: BP 133/72
[2021-01-21 06:36] LABS: BASOPHILS 0 % (0-2); EOSINOPHILS 0 % (0-7); HEMATOCRIT 28.6 % (36.0-48.0); HEMOGLOBIN 8.6 g/dL (12-16); IMMATURE GRANULOCYTES 1.3 % (0-5); LYMPHOCYTE ABS# 0.53 10x3/uL (1.18-3.74); LYMPHOCYTES 5.5 % (15-50); MCHC 30.1 g/dL (31.0-37.0); MEAN PLATELET VOLUME 10.4 fL (7.4-10.4); MONOCYTES 3.4 % (2-11); NEUTROPHIL ABS# 8.64 10x3/uL (1.56-6.13); NEUTROPHILS 89.8 % (40-80); PLATELET COUNT 222 10x3/uL (130-400); RBC 4.61 10x6/uL (4.00-5.40); RDW 15.2 % (11.5-14.5)
[2021-01-21 06:37] LABS: MCH 18.7 pg (26.0-34.0); WBC 9.6 10x3/uL (4.8-10.8)
[2021-01-21 06:49] LABS: ALBUMIN 1.8 g/dL (3.4-5.0); ANION GAP 8.4 mmol/L (8-16); BILIRUBIN - TOTAL 0.24 mg/dL (0.2-1.3); CALCIUM 8.2 mg/dL (8.5-10.1); CARBON DIOXIDE 28.2 mmol/L (21.0-32.0); CREATININE - SERUM 1.3 mg/dL (0.6-1.3); POTASSIUM - SERUM 4.6 mmol/L (3.5-5.1); PROTEIN - SERUM 5.2 g/dL (6.4-8.2)
[2021-01-21 07:49] VITALS: BP 134/71
--- NOTE | 2021-01-21 08:31 | NUR ---
HELPED HATCHERY LABORER GET PT UP TO CHAIR. AM MEDS GIVEN AT THIS TIME. PT A/O X4, A LITTLE SOB FROM GETTING UP TO CHAIR. ENCOURAGED HER TO TAKE IN DEEP BREATHS. ON CONT PULSE OX. RT IJ INFUISNG NS AT 10CC/HR. SR-68 ON TELE. PT DENIES ANY NEEDS AT THIS TIME. CALL LIGHT IN REACH, WILL CONTINUE PLAN OF CARE.
[2021-01-21 11:50] VITALS: BP 139/70
--- NOTE | 2021-01-21 14:24 | NUR ---
PT RESTING COMFORTABLY IN BED, KLONOPIN GIVEN AT THIS TIME. PT DENIES ANY NEEDS AT THIS TIME, CALL LIGHT IN REACH.
[2021-01-21 15:39] VITALS: BP 139/79
[2021-01-21 20:30] VITALS: BP 117/72
[2021-01-22 04:30] VITALS: BP 145/73
[2021-01-22 07:15] LABS: ALBUMIN 1.8 g/dL (3.4-5.0); ANION GAP 11.1 mmol/L (8-16); BILIRUBIN - TOTAL 0.24 mg/dL (0.2-1.3); CALCIUM 8.5 mg/dL (8.5-10.1); CARBON DIOXIDE 25.4 mmol/L (21.0-32.0); CREATININE - SERUM 1.2 mg/dL (0.6-1.3); POTASSIUM - SERUM 4.5 mmol/L (3.5-5.1); PROTEIN - SERUM 5.2 g/dL (6.4-8.2)
[2021-01-22 07:19] LABS: BASOPHILS 0.1 % (0-2); EOSINOPHILS 0 % (0-7); HEMATOCRIT 27.6 % (36.0-48.0); HEMOGLOBIN 8.4 g/dL (12-16); LYMPHOCYTE ABS# 0.68 10x3/uL (1.18-3.74); LYMPHOCYTES 5.9 % (15-50); MCHC 30.4 g/dL (31.0-37.0); MCV 62.2 fL (80.0-100.0); MEAN PLATELET VOLUME 10.4 fL (7.4-10.4); MONOCYTES 3.8 % (2-11); NEUTROPHIL ABS# 10.25 10x3/uL (1.56-6.13); NEUTROPHILS 88.2 % (40-80); PLATELET COUNT 202 10x3/uL (130-400); RBC 4.44 10x6/uL (4.00-5.40); RDW 15.3 % (11.5-14.5); WBC 11.6 10x3/uL (4.8-10.8)
[2021-01-22 07:22] LABS: MCH 18.9 pg (26.0-34.0)
--- NOTE | 2021-01-22 07:27 | NUR ---
CLEANED PT UP FROM INCONT EPISODE. AND HELPED PT TO REPOSITION IN BED, PT DENIES ANY OTHER NEEDS AT THIS TIME. CALL LIGHT IN REACH, WILL CONTINUE PLAN OF CARE.
[2021-01-22 08:35] VITALS: BP 136/74
[2021-01-22 12:10] VITALS: BP 129/71
[2021-01-22 16:16] VITALS: BP 121/74
--- NOTE | 2021-01-22 17:40 | MORECARE ---
CASE MANAGEMENT DISCHARGE SUMMARY PATIENT: SJ POWELL UNIT: [id number] ADM DATE: 01/10/21 AGE: 55 : 63 SEX: F ROOM/BED: D.2140 AUTHOR: EUSEBIA,DOC PHYSICIAN: REFERRING PHYSICIAN: OPAL DECKER DO DATE OF SERVICE: 01/22/21 Case Management Discharge Planning Summary CT Patient Name: SJ POWELL Attending MD : OPAL BARRERA Medical Record: [id number] Encounter : [id number] Facility : [address] [place] [address] Admission Date : 114:52 Center Discharge Date : [address] [place] [address] Date of : DC Plan ID : [id number] Age/Sex/Martia : 55/ F/M Printed on : 01/22/21 17:39 CT DCP Review Details Anticipated D/C: Expected LOS : Case Status : INITIATED - Initial Reviewe: [id number] Calin Houser Initial Review: 01/10/2021 Planned Disposi: 01 - Home or Self Care (Routine Discharge) Final Discharge: - Final Reviewer : : Final Review : DCP Focus Questions & Answers DCP Screen High Risk Factors: Hosp related to CHF, COPD, DM, End Stage Ds, CVA, CA DCP Evaluation Patient and/or caregiver agree upon recommended Yes discharge plan? Family / Caregiver's ability to cope with chronic a. Adequate (ability to meet patient's illness: medical needs, ensures patient attends medical appts.) Patient's current cognitive status: *Oriented to person, place, situation, time and present Patient gives permission to discuss discharge BEAN HODGE - DAUGHTER [phone] plans with: (name, relationship and number) SALINA ANDREWS [phone] Patient's ability to cope with chronic illness a. Adequate (0-3 ED visits in 6 mos., adequate financial resources, attends scheduled appts.) Alternate discharge plan (if recommended plan not PATIENT REFUSED REHAB OR HHS agreed upon by patient and/or caregiver): Does the patient have the ability to pay for or Yes attain post discharge needs / services? Functional screen assessment: Noticeable poor ADL management Family / Caregiver's ability to cope with chronic a. Adequate (ability to meet patient's illness: medical needs, ensures patient attends medical appts.) Physical Status: Incontinent Is there a likelihood that the patient will Yes require additional services to return to the preadmission environment? Living Arrangements: Home with Spouse/Significant Other Partial Dependence, assistance required for: Ambulation / Mobility Results of this evaluation have been discussed Patient with: Patient with capacity for self-care or can be Yes cared for in same environment as prior to hospitalization? Living arrangements comments: LIVES WITH FIANCE Baseline cognitive status: *Oriented to person, place, situation, time and present Physical environment modification needed / N/A anticipated for discharge: Comments: PATIENT MAY REQUIRE PORTABLE 02 AND POSSIBLY NEBULIZER OR TRILOGY Preadmission facility can/cannot provide post Can - at same level of care as preadmission hospital level of care needs: Medication Management: Patient states can afford medications Planned post hospital services available for N/A patient? Pharmacy name(s): [facility] Planned post hospital services covered by N/A insurance plan? Does Patient have transportation to get home and Yes to follow-up medical appointments when discharged from the hospital? Would patient like to participate in any Care Not applicable Coordination programs (if applicable): Does the patient have electricity at home? Yes Does the patient have running water in their Yes house? Equipment in use: Home Oxygen with Nasal Cannula Equipment agency name and contact information: [facility] Mental health screen: No mental health history Resources / Services in place: None DCP Re-evaluation Would patient like to participate in any Care Not applicable Coordination programs (if applicable): [facility] SJ POWELL MR#: [id number] /Age/Sex/ /55/F /M Attending Physician Name: CLAIRE DECKER [id number] Patient Account:[id number] [facility] Page -1 of 1 All edits/amendments must be made on the electronic document DICTATION DATE: 01/22/211738 CATALOGUE ILLUSTRATOR: STORM 01/22/211738 RPT#: [id number] [place] DATE: STATUS: ADM IN [facility] [address] [place] [address] END OF REPORT
--- NOTE | 2021-01-22 17:57 | MORECARE ---
CASE MANAGEMENT DISCHARGE SUMMARY PATIENT: SJ POWELL UNIT: [id number] ADM DATE: 01/10/21 AGE: 55 : 63 SEX: F ROOM/BED: D.2140 AUTHOR: EUSEBIA,DOC PHYSICIAN: REFERRING PHYSICIAN: OPAL DECKER DO DATE OF SERVICE: 01/22/21 Case Management Discharge Planning Summary CT Patient Name: SJ POWELL Attending MD : OPAL BARRERA Medical Record: [id number] Encounter : [id number] Facility : [address] [place] [address] Admission Date : 114:52 Center Discharge Date : [address] [place] [address] Date of : DC Plan ID : [id number] Age/Sex/Martia : 55/ F/M Printed on : 01/22/21 17:55 CT DCP Review Details Anticipated D/C: Expected LOS : Case Status : INITIATED - Initial Reviewe: [id number] - Nataly Houser Initial Review: 01/10/2021 Planned Disposi: 01 - Home or Self Care (Routine Discharge) Final Discharge: - Final Reviewer : : Final Review : Comments CT Entered Date Type Reviewer 01/22/21 17:38 CT Discharge Planning Nataly Houser Comment LATE ENTRY 01/18/21 CM spoke with patient to complete initial dc planning assessment. CM educated patient on the CM role and verbal consent given by patient to complete assessment. Patient lives at home with family. Patient is independent. At discharge patient plans to return home and feels this is a safe discharge. CM discussed availability of home health, rehab services, and medical equipment. Patient states that she has home 02 that she uses at night with [employer]. Patient is refusing HHS or rehab at this time. Declination is signed. Patient will have family to transport home. Patient denied known discharge needs at this time. CM will continue to follow and will assist as needed with dc plans/needs. DCP Focus Questions & Answers DCP Screen High Risk Factors: Hosp related to CHF, COPD, DM, End Stage Ds, CVA, CA DCP Evaluation Patient and/or caregiver agree upon recommended Yes discharge plan? Family / Caregiver's ability to cope with chronic a. Adequate (ability to meet patient's illness: medical needs, ensures patient attends medical appts.) Patient's current cognitive status: *Oriented to person, place, situation, time and present Patient gives permission to discuss discharge BEAN HODGE - DAUGHTER [phone] plans with: (name, relationship and number) SALINA ANDREWS [phone] Patient's ability to cope with chronic illness a. Adequate (0-3 ED visits in 6 mos., adequate financial resources, attends scheduled appts.) Alternate discharge plan (if recommended plan not PATIENT REFUSED REHAB OR HHS agreed upon by patient and/or caregiver): Does the patient have the ability to pay for or Yes attain post discharge needs / services? Functional screen assessment: Noticeable poor ADL management Family / Caregiver's ability to cope with chronic a. Adequate (ability to meet patient's illness: medical needs, ensures patient attends medical appts.) Physical Status: Incontinent Is there a likelihood that the patient will Yes require additional services to return to the preadmission environment? Living Arrangements: Home with Spouse/Significant Other Partial Dependence, assistance required for: Ambulation / Mobility Results of this evaluation have been discussed Patient with: Patient with capacity for self-care or can be Yes cared for in same environment as prior to hospitalization? Living arrangements comments: LIVES WITH FIANCE Baseline cognitive status: *Oriented to person, place, situation, time and present Physical environment modification needed / N/A anticipated for discharge: Comments: PATIENT MAY REQUIRE PORTABLE 02 AND POSSIBLY NEBULIZER OR TRILOGY Preadmission facility can/cannot provide post Can - at same level of care as preadmission hospital level of care needs: Medication Management: Patient states can afford medications Planned post hospital services available for N/A patient? Pharmacy name(s): [facility] Planned post hospital services covered by N/A insurance plan? Does Patient have transportation to get home and Yes to follow-up medical appointments when discharged from the hospital? Would patient like to participate in any Care Not applicable Coordination programs (if applicable): Does the patient have electricity at home? Yes Does the patient have running water in their Yes house? Equipment in use: Home Oxygen with Nasal Cannula Equipment agency name and contact information: [facility] Mental health screen: No mental health history Resources / Services in place: None DCP Re-evaluation Would patient like to participate in any Care Not applicable Coordination programs (if applicable): [facility] SJ POWELL MR#: [id number] /Age/Sex/Rbvrhb2-Wrl-26 /55/F /M Attending Physician Name: CLAIRE DECKER [id number] Patient Account:[id number] [facility] Page -1 of 1 All edits/amendments must be made on the electronic document DICTATION DATE: 01/22/211754 SSN/SSBN ASSISTANT NAVIGATOR: STORM 01/22/211754 RPT#: [id number] DC DATE: STATUS: ADM IN [facility] [address] [place] [address] END OF REPORT
--- NOTE | 2021-01-22 19:30 | NUR ---
RECEIVED REPORT, WILL ASSUME CARE OF PT, TALKING ON PHONE, DENIES ANY NEEDS AT THIS TIME, BED IS LOW, SRX3, CALL LIGHT IN REACH, WILL CONTINUE PLAN OF CARE
[2021-01-22 22:30] VITALS: BP 134/73
[2021-01-23 04:00] VITALS: BP 131/72
--- NOTE | 2021-01-23 04:09 | NUR ---
IJ WOULDNT DRAW BLOOD, REFUSING LAB
--- NOTE | 2021-01-23 04:47 | NUR ---
I have reviewed this patient and I concur with the Shift Assessment completed by the Licensed Practical Nurse today this shift.
--- NOTE | 2021-01-23 07:00 | NUR ---
RECEIVED REPORT. ASSUMED CARE OF PATIENT. PATIENT RESTING IN BED WITH EYES OPEN. BEDSIDE SHIFT REPORT COMPLETE. WHITE BOARD UPDATED. PATIENT ASKING ABOUT GETTING TO GO HOME TODAY. NO DISCHARGE ORDERS AT THIS TIME. CALL LIGHT WITHIN REACH. LAB AT BEDSIDE FOR BLOOD DRAW RIGHT IJ WILL NOT DRAW BLOOD. NO DISTRESS.
[2021-01-23 07:49] LABS: BASOPHILS 0.1 % (0-2); EOSINOPHILS 0 % (0-7); HEMATOCRIT 30.8 % (36.0-48.0); HEMOGLOBIN 9.5 g/dL (12-16); IMMATURE GRANULOCYTES 2.2 % (0-5); LYMPHOCYTE ABS# 0.73 10x3/uL (1.18-3.74); LYMPHOCYTES 5.3 % (15-50); MCHC 30.8 g/dL (31.0-37.0); MCV 61.7 fL (80.0-100.0); MEAN PLATELET VOLUME 10.2 fL (7.4-10.4); MONOCYTES 4.1 % (2-11); NEUTROPHIL ABS# 12.17 10x3/uL (1.56-6.13); NEUTROPHILS 88.3 % (40-80); PLATELET COUNT 216 10x3/uL (130-400); RBC 4.99 10x6/uL (4.00-5.40); RDW 15.6 % (11.5-14.5); WBC 13.8 10x3/uL (4.8-10.8)
[2021-01-23 07:55] LABS: ALBUMIN 2.1 g/dL (3.4-5.0); ANION GAP 13.1 mmol/L (8-16); BILIRUBIN - TOTAL 0.29 mg/dL (0.2-1.3); CALCIUM 8.8 mg/dL (8.5-10.1); CARBON DIOXIDE 24.4 mmol/L (21.0-32.0); CREATININE - SERUM 1.2 mg/dL (0.6-1.3); POTASSIUM - SERUM 4.5 mmol/L (3.5-5.1); PROTEIN - SERUM 5.7 g/dL (6.4-8.2)
[2021-01-23 08:58] VITALS: BP 132/71
--- NOTE | 2021-01-23 11:54 | NUR ---
REAPPLIED [place]. PATIENT OOB TO CHAIR AT BEDSIDE, OOB FOR NOON MEAL. CALL LIGHT WITHIN REACH. AT BEDSIDE FOR ROUNDS. NO DISTRESS.
[2021-01-23 15:53] VITALS: BP 120/70
--- NOTE | 2021-01-23 19:05 | NUR ---
pt lying in bed awake alert denies any needs, will continue to monitor
[2021-01-23 20:00] VITALS: BP 132/66
[2021-01-24] VITALS: BP 137/75
--- NOTE | 2021-01-24 03:22 | MORECARE ---
CASE MANAGEMENT DISCHARGE SUMMARY PATIENT: SJ POWELL UNIT: [id number] ADM DATE: 01/10/21 AGE: 55 : 63 SEX: F ROOM/BED: D.2140 AUTHOR: EUSEBIA,DOC PHYSICIAN: REFERRING PHYSICIAN: OPAL DECKER DO DATE OF SERVICE: 01/24/21 Case Management Discharge Planning Summary CT Patient Name: SJ POWELL Attending MD : OPAL BARRERA Medical Record: [id number] Encounter : [id number] Facility : [address] [place] [address] Admission Date : 114:52 Center Discharge Date : [address] [place] [address] Date of : DC Plan ID : [id number] Age/Sex/Martia : 55/ F/M Printed on : 01/24/21 3:22 CT DCP Review Details Anticipated D/C: Expected LOS : Case Status : INITIATED - Initial Reviewe: [id number] - Nataly Houser Initial Review: 01/10/2021 Planned Disposi: 01 - Home or Self Care (Routine Discharge) Final Discharge: - Final Reviewer : : Final Review : Comments CT Entered Date Type Reviewer 01/24/21 3:14 CT Discharge Planning Nataly Houser Comment Patient is now agreeing to rehab [facility] inpatient, Rehab prescreen and auth pending with [facility]. CM will continue to follow and assist with d/c planning / needs. 01/22/21 17:38 CT Discharge Planning Nataly Houser Comment LATE ENTRY 01/18/21 CM spoke with patient to complete initial dc planning assessment. CM educated patient on the CM role and verbal consent given by patient to complete assessment. Patient lives at home with family. Patient is independent. At discharge patient plans to return home and feels this is a safe discharge. CM discussed availability of home health, rehab services, and medical equipment. Patient states that she has home 02 that she uses at night with [employer]. Patient is refusing HHS or rehab at this time. Declination is signed. Patient will have family to transport home. Patient denied known discharge needs at this time. CM will continue to follow and will assist as needed with dc plans/needs. DCP Focus Questions & Answers DCP Screen High Risk Factors: Hosp related to CHF, COPD, DM, End Stage Ds, CVA, CA DCP Evaluation Patient and/or caregiver agree upon recommended Yes discharge plan? Family / Caregiver's ability to cope with chronic a. Adequate (ability to meet patient's illness: medical needs, ensures patient attends medical appts.) Patient's current cognitive status: *Oriented to person, place, situation, time and present Patient gives permission to discuss discharge BEAN HODGE - DAUGHTER [phone] plans with: (name, relationship and number) SALINA ANDREWS [phone] Patient's ability to cope with chronic illness a. Adequate (0-3 ED visits in 6 mos., adequate financial resources, attends scheduled appts.) Alternate discharge plan (if recommended plan not PATIENT REFUSED REHAB OR HHS agreed upon by patient and/or caregiver): Does the patient have the ability to pay for or Yes attain post discharge needs / services? Functional screen assessment: Noticeable poor ADL management Family / Caregiver's ability to cope with chronic a. Adequate (ability to meet patient's illness: medical needs, ensures patient attends medical appts.) Physical Status: Incontinent Is there a likelihood that the patient will Yes require additional services to return to the preadmission environment? Living Arrangements: Home with Spouse/Significant Other Partial Dependence, assistance required for: Ambulation / Mobility Results of this evaluation have been discussed Patient with: Patient with capacity for self-care or can be Yes cared for in same environment as prior to hospitalization? Living arrangements comments: LIVES WITH FIANCE Baseline cognitive status: *Oriented to person, place, situation, time and present Physical environment modification needed / N/A anticipated for discharge: Comments: PATIENT MAY REQUIRE PORTABLE 02 AND POSSIBLY NEBULIZER OR TRILOGY Preadmission facility can/cannot provide post Can - at same level of care as preadmission hospital level of care needs: Medication Management: Patient states can afford medications Planned post hospital services available for N/A patient? Pharmacy name(s): [facility] Planned post hospital services covered by N/A insurance plan? Does Patient have transportation to get home and Yes to follow-up medical appointments when discharged from the hospital? Would patient like to participate in any Care Not applicable Coordination programs (if applicable): Does the patient have electricity at home? Yes Does the patient have running water in their Yes house? Equipment in use: Home Oxygen with Nasal Cannula Equipment agency name and contact information: [facility] Mental health screen: No mental health history Resources / Services in place: None DCP Re-evaluation Would patient like to participate in any Care Not applicable Coordination programs (if applicable): [facility] SJ POWELL MR#: [id number] /Age/Sex/Pezzjm3-Wuu-83 /55/F /M Attending Physician Name: CLAIRE DECKER [id number] Patient Account:[id number] [facility] Page -1 of 1 All edits/amendments must be made on the electronic document DICTATION DATE: 01/24/21321 FORMING TUBE SELECTOR: STORM 01/24/21321 RPT#: [id number] DC DATE: STATUS: ADM IN [facility] [address] [place] [address] END OF REPORT
[2021-01-24 04:00] VITALS: BP 148/75
[2021-01-24 06:22] LABS: ANION GAP 12.9 mmol/L (8-16); BILIRUBIN - TOTAL 0.24 mg/dL (0.2-1.3); CALCIUM 8.4 mg/dL (8.5-10.1); CARBON DIOXIDE 23.6 mmol/L (21.0-32.0); CREATININE - SERUM 1.4 mg/dL (0.6-1.3); POTASSIUM - SERUM 4.5 mmol/L (3.5-5.1); PROTEIN - SERUM 5.4 g/dL (6.4-8.2)
[2021-01-24 06:27] LABS: HEMATOCRIT 28.5 % (36.0-48.0); HEMOGLOBIN 8.7 g/dL (12-16); LYMPHOCYTE ABS# 0.63 10x3/uL (1.18-3.74); MCHC 30.5 g/dL (31.0-37.0); MEAN PLATELET VOLUME 9.7 fL (7.4-10.4); NEUTROPHIL ABS# 11.06 10x3/uL (1.56-6.13); PLATELET COUNT 227 10x3/uL (130-400); RDW 15.8 % (11.5-14.5); WBC 12.6 10x3/uL (4.8-10.8)
[2021-01-24 06:38] LABS: MCH 18.9 pg (26.0-34.0)
[2021-01-24 07:28] VITALS: BP 150/75
[2021-01-24 09:14] LABS: EOSINOPHILS 1 % (0-7); LYMPHOCYTES 11 % (15-50); MONOCYTES 11 % (2-11); NEUTROPHILS 77 % (40-80); PLATELET ESTIMATE NORMAL
--- NOTE | 2021-01-24 09:18 | NUR ---
PT TELLS NURSE SHE WANTS TO GO HOME AND REFUSE REHAB TO RENEW VEHICLE TAGS BECAUSE TODAY IS THE ONLY DAY HER DAUGHTER CAN BRING HER. REFUSED EDUCATION AND SET ON GOING HOME. INFORMED ENOC PARDO WHO REPORTED HE WOULD TALK WITH PATIENT.
--- NOTE | 2021-01-24 09:23 | NUR ---
SPOKE WITH GAURAV WHO CALLED. HE REPORTS HE IS THE PORTAL DEVELOPER AND LIVES WITH PATIENT. HE SAYS HE WANTS REHAB AT HOME. NURSE REPORTED TO DOCTOR AND CASEMANAGER. PROVIDED GAURAV'S NUMBER TO VIDEO TECHNICIAN. CHAR STUBBS AWARE AND TALKING WITH PATIENT.
--- NOTE | 2021-01-24 12:34 | NUR ---
Nutrition Re-Assessment Diet: Regular PO intake: 50-75%. She reports that her appetite is "okay." She denies needs from dietary at this time. Last BM: 01/24/21 (loose) Wt: 150# (01/11/21)- no new weight Meds noted: solumedrol, miralax, probiotics, k-dur, lasix Labs noted: BUN 36(H), Cr 1.4(H), GFR 41(L), Glu 117(H), alb 2.0(L) Estimated nutrition needs and nutrition diagnosis remain unchanged from initial nutrition assessment at this time. Patient is progressing towards meeting nutrition goals at this time. Recommendations/Interventions: -Recommend continue regular diet. Encouraged PO intake. Will continue to honor food preferences. -RD will follow-up within 7 days.
--- NOTE | 2021-01-24 14:03 | NUR ---
SPOKE WITH DAUGHTER, BEAN WHO SEEMS VERY REASONABLE. SHE REPORTED SHE WAS UNABLE TO CONVINCE HER MOTHER TO STAY. SHE REPORTED SHE WOULD GET PT HOME O2 TANK TO BRING TO HOSPITAL BUT DOES NOT HAVE [facility] TO OPEN TANK. NURSE SPOKE WITH RT AND WILL HAVE A [facility] AVAILABLE TO OPEN TANK WHEN THEY ARRIVE. NURSE EDUCATED DAUGHTER ON RISKS OF LEAVING AMA AND THE DAUGHTER RECIEVED EDUCATION WELL AND SEEMED TO UNDERSTAND. PATIENT WAS ALSO EDUCATED BUT DID NOT SEEM RECEPTIVE TO EDUCATION AT ALL. SHE ANSWERS ALL ORIENTATION QUESTIONS CORRECTLY. SO FAR THE PUBLIC ADDRESS TECHNICIAN, CHAR STUBBS, DR GONZALEZ, AND NURSE HAVE ALL ATTEMPTED TO EDUCATE PATIENT ABOUT RISKS OF LEAVING AND IMPORTANCE OF STAYING. ALL EDUCATION HAS FAILED. NURSE HAD PATIENT SIGN AMA FORM, TOOK OUT CENTRAL LINE. PT EDUCATED TO LAY FLAT FOR 20 MINUTES BC OF RISK OF BLEEDING. SHE VOICED UNDERSTANDING. DAUGHTER TO ARRIVE IN 30 MINUTES.
--- NOTE | 2021-01-24 14:34 | NUR ---
OT NOTE: PT MORE CONFUSED TODAY. INCREASED DIFFICULTY WITH FOLLOWING COMMANDS AND MOTOR PLANNING; BED MOB WITH SBA; TRANSFER TO CHAIR WITH MIN ASSIST (VERY UNSTEADY); AMB TO SINK (APPROX 8 FT) AND ATTEMPTED SINK BATH, HOWEVER, PT REQUIRED CUES FOR EACH TASK.. DID NOT INITIATE ANYTHING.. WHEN NOT BEING TOLD EACH STEP, PT WOULD JUST STAND THERE. REQUIRED MOD ASSIST TO CLEAN PERINEAL AREA. ENDED UP SITTING ON BS COMMODE TO COMPLETE BATHING. PROVIDED PT WITH A BRUSH AND SHE JUST HELD IT TO HER HEAD. O2 SATS REMAINED WFLS.. ABOVE 90%..REQUIRED EXT TIME, VERBAL CUES, AND ENCOURAGEMENT TO MIKA SOCKS. PT WAS ASKED WHO HELPED HER AT HOME WITH HER ADLS.. SHE STATED THAT HER FIANCE HELPED HER GET DRESSED. AMB BACK TO CHAIR WITH MIN ASSIST. PROVIDED CHAIR ALARM DUE TO DECREASED SAFETY AWARENESS. [place], OTR/L [phone]
--- NOTE | 2021-01-24 14:41 | NUR ---
DAUGHTER ARRIVED TO NITROCELLULOSE MAKER PATIENT WITH TWO SMALL O2 TANKS WITHOUT FLOW METERS. REPORTED IT WAS A [address] PT REPORTED SHE WANTED TO LEAVE ON ROOM AIR AND CONNECT TO HOME OXYGEN MACHINE ON ARRIVAL. NURSE EDUCATED PATIENT ABOUT RISKS. PATIENT WANTS TO LEAVE ON ROOM AIR REGARDLESS. NURSE EDUCATED PATIENT ABOUT COMING TO THE ER IF SHORT OF BREATH. PT VERBALIZED UNDERSTANDING. DAUGHTER SEEMED VERY UPSET PT WAS LEAVING AMA BUT PT WOULD NOT LISTEN TO ANYTHING HER DAUGHTER WAS SAYING TO HER. PT TAKEN TO VEHICLE VIA WHEELCHAIR ON OUR OXYGEN THEN ROOM AIR WHEN GETTING INTO VEHICLE WITH DAUGHTER.
--- NOTE | 2021-01-24 14:43 | NUR ---
OT NOTE: PT REQUIRED EXTENDED TIME TO COMPLETE SIMPLE TASKS. PT COMPETED BED MOB WITH MIN-MOD A. PT COMPLETED SIMPLE FACE AND HAND HYGIENE WITH MODERATE CUES. PT ALSO REQUIRED EXTENDED TIME TO ANSWER SIMPLE QUESTIONS. NURSING AWARE. [phone] THANK YOU,GIRISH WALDEN
--- NOTE | 2021-01-24 19:06 | MORECARE ---
CASE MANAGEMENT DISCHARGE SUMMARY PATIENT: SJ POWELL UNIT: [id number] ADM DATE: 01/10/21 AGE: 55 : 63 SEX: F ROOM/BED: D.3800 AUTHOR: EUSEBIA,DOC PHYSICIAN: REFERRING PHYSICIAN: OPAL DECKER DO DATE OF SERVICE: 01/24/21 Case Management Discharge Planning Summary COMMENTS ENTERED DATE: 01/24/21 19:00 CT COMMENT TYPE: Discharge Planning REVIEWER: Danny Wooten Patient left AMA ENTERED DATE: 01/24/21 3:14 CT COMMENT TYPE: Discharge Planning REVIEWER: Nataly Houser Patient is now agreeing to rehab [facility] inpatient, Rehab prescreen and auth pending with [facility]. CM will continue to follow and assist with d/c planning / needs. ENTERED DATE: 01/22/21 17:38 CT COMMENT TYPE: Discharge Planning REVIEWER: Nataly Houser LATE ENTRY 01/18/21 CM spoke with patient to complete initial dc planning assessment. CM educated patient on the CM role and verbal consent given by patient to complete assessment. Patient lives at home with family. Patient is independent. At discharge patient plans to return home and feels this is a safe discharge. CM discussed availability of home health, rehab services, and medical equipment. Patient states that she has home 02 that she uses at night with [employer]. Patient is refusing HHS or rehab at this time. Declination is signed. Patient will have family to transport home. Patient denied known discharge needs at this time. CM will continue to follow and will assist as needed with dc plans/needs. DCP REVIEW SUMMARY ANTICIPATED D/C DATE: EXPECTED LOS : CASE STATUS: DCP Initiated INITIAL REVIEW: 01/10/2021 INITIAL REVIEWER: Nataly Houser FINAL DISCHARGE DISPOSITION: : FINAL REVIEWER: FINAL REVIEW DATE: DCP Focus Questions & Answers DCP Screen QUESTION: ANSWER High Risk Factors: : Hosp related to CHF, COPD, DM, End Stage Ds, CVA, CA DCP Evaluation QUESTION: ANSWER Patient and/or caregiver agree upon recommended discharge plan? : Yes Family / Caregiver's ability to cope with chronic illness: : a. Adequate (ability to meet patient's medical needs, ensures patient attends medical appts.) Patient's current cognitive status: : *Oriented to person, place, situation, time and present Patient gives permission to discuss discharge plans with: (name, relationship and number) : BEAN HODGE - DAUGHTER [phone] SALINA ANDREWS [phone] Patient's ability to cope with chronic illness : a. Adequate (0-3 ED visits in 6 mos., adequate financial resources, attends scheduled appts.) Alternate discharge plan (if recommended plan not agreed upon by patient and/or caregiver): : PATIENT REFUSED REHAB OR HHS Does the patient have the ability to pay for or attain post discharge needs / services? : Yes Functional screen assessment: : Noticeable poor ADL management Family / Caregiver's ability to cope with chronic illness: : a. Adequate (ability to meet patient's medical needs, ensures patient attends medical appts.) Physical Status: : Incontinent Is there a likelihood that the patient will require additional services to return to the preadmission environment? : Yes Living Arrangements: : Home with Spouse/Significant Other Partial Dependence, assistance required for: : Ambulation / Mobility Results of this evaluation have been discussed with: : Patient Patient with capacity for self-care or can be cared for in same environment as prior to hospitalization? : Yes Living arrangements comments: : LIVES WITH FIANCE Baseline cognitive status: : *Oriented to person, place, situation, time and present Physical environment modification needed / anticipated for discharge: : N/A Comments: : PATIENT MAY REQUIRE PORTABLE 02 AND POSSIBLY NEBULIZER OR TRILOGY Preadmission facility can/cannot provide post hospital level of care needs: : Can - at same level of care as preadmission Medication Management: : Patient states can afford medications Planned post hospital services available for patient? : N/A Pharmacy name(s): : [facility] Planned post hospital services covered by insurance plan? : N/A Does Patient have transportation to get home and to follow-up medical appointments when discharged from the hospital? : Yes Would patient like to participate in any Care Coordination programs (if applicable): : Not applicable Does the patient have electricity at home? : Yes Does the patient have running water in their house? : Yes Equipment in use: : Home Oxygen with Nasal Cannula Equipment agency name and contact information: : [facility] Mental health screen: : No mental health history Resources / Services in place: : None DCP Re-evaluation QUESTION: ANSWER Would patient like to participate in any Care Coordination programs (if applicable): : Not applicable PATIENT: SJ POWELL ENCOUNTER: [id number] MEDICAL RECORD#: [id number] ADMISSION DATE: 01/10/2021 DISCHARGE DATE: 01/24/2021 ATTENDING MD: OPAL WASHBURN : AGE: 55 MARITAL STATUS: M DC PLAN ID: [id number] FACILITY: [facility] PRINTED ON: 01/24/21 19:06 CT All edits/amendments must be made on the electronic document DICTATION DATE: 01/24/211905 UPFITTER: STORM 01/24/211905 RPT#: [id number] DC DATE:01/24/21 STATUS: DIS IN [facility] [address] [place] [address] END OF REPORT
--- NOTE | 2021-01-26 10:45 | MORECARE ---
CASE MANAGEMENT DISCHARGE SUMMARY PATIENT: SJ POWELL UNIT: [id number] ADM DATE: 01/10/21 AGE: 55 : 63 SEX: F ROOM/BED: D.3650 AUTHOR: EUSEBIA,DOC PHYSICIAN: REFERRING PHYSICIAN: OPAL DECKER DO DATE OF SERVICE: 01/26/21 Case Management Discharge Planning Summary COMMENTS ENTERED DATE: 01/24/21 19:00 CT COMMENT TYPE: Discharge Planning REVIEWER: Danny Wooten Patient left AMA ENTERED DATE: 01/24/21 3:14 CT COMMENT TYPE: Discharge Planning REVIEWER: Nataly Houser Patient is now agreeing to rehab [facility] inpatient, Rehab prescreen and auth pending with [facility]. CM will continue to follow and assist with d/c planning / needs. ENTERED DATE: 01/22/21 17:38 CT COMMENT TYPE: Discharge Planning REVIEWER: Nataly Houser LATE ENTRY 01/18/21 CM spoke with patient to complete initial dc planning assessment. CM educated patient on the CM role and verbal consent given by patient to complete assessment. Patient lives at home with family. Patient is independent. At discharge patient plans to return home and feels this is a safe discharge. CM discussed availability of home health, rehab services, and medical equipment. Patient states that she has home 02 that she uses at night with [employer]. Patient is refusing HHS or rehab at this time. Declination is signed. Patient will have family to transport home. Patient denied known discharge needs at this time. CM will continue to follow and will assist as needed with dc plans/needs. DCP REVIEW SUMMARY ANTICIPATED D/C DATE: EXPECTED LOS : CASE STATUS: DCP Initiated INITIAL REVIEW: 01/10/2021 INITIAL REVIEWER: Nataly Houser FINAL DISCHARGE DISPOSITION: : FINAL REVIEWER: FINAL REVIEW DATE: DCP Focus Questions & Answers DCP Screen QUESTION: ANSWER High Risk Factors: : Hosp related to CHF, COPD, DM, End Stage Ds, CVA, CA DCP Evaluation QUESTION: ANSWER Patient and/or caregiver agree upon recommended discharge plan? : Yes Family / Caregiver's ability to cope with chronic illness: : a. Adequate (ability to meet patient's medical needs, ensures patient attends medical appts.) Patient's current cognitive status: : *Oriented to person, place, situation, time and present Patient gives permission to discuss discharge plans with: (name, relationship and number) : BEAN HODGE - DAUGHTER [phone] SALINA ANDREWS [phone] Patient's ability to cope with chronic illness : a. Adequate (0-3 ED visits in 6 mos., adequate financial resources, attends scheduled appts.) Alternate discharge plan (if recommended plan not agreed upon by patient and/or caregiver): : PATIENT REFUSED REHAB OR HHS Does the patient have the ability to pay for or attain post discharge needs / services? : Yes Functional screen assessment: : Noticeable poor ADL management Family / Caregiver's ability to cope with chronic illness: : a. Adequate (ability to meet patient's medical needs, ensures patient attends medical appts.) Physical Status: : Incontinent Is there a likelihood that the patient will require additional services to return to the preadmission environment? : Yes Living Arrangements: : Home with Spouse/Significant Other Partial Dependence, assistance required for: : Ambulation / Mobility Results of this evaluation have been discussed with: : Patient Patient with capacity for self-care or can be cared for in same environment as prior to hospitalization? : Yes Living arrangements comments: : LIVES WITH FIANCE Baseline cognitive status: : *Oriented to person, place, situation, time and present Physical environment modification needed / anticipated for discharge: : N/A Comments: : PATIENT MAY REQUIRE PORTABLE 02 AND POSSIBLY NEBULIZER OR TRILOGY Preadmission facility can/cannot provide post hospital level of care needs: : Can - at same level of care as preadmission Medication Management: : Patient states can afford medications Planned post hospital services available for patient? : N/A Pharmacy name(s): : [facility] Planned post hospital services covered by insurance plan? : N/A Does Patient have transportation to get home and to follow-up medical appointments when discharged from the hospital? : Yes Would patient like to participate in any Care Coordination programs (if applicable): : Not applicable Does the patient have electricity at home? : Yes Does the patient have running water in their house? : Yes Equipment in use: : Home Oxygen with Nasal Cannula Equipment agency name and contact information: : [facility] Mental health screen: : No mental health history Resources / Services in place: : None DCP Re-evaluation QUESTION: ANSWER Would patient like to participate in any Care Coordination programs (if applicable): : Not applicable PATIENT: SJ POWELL ENCOUNTER: [id number] MEDICAL RECORD#: [id number] ADMISSION DATE: 01/10/2021 DISCHARGE DATE: 01/24/2021 ATTENDING MD: OPAL WASHBURN : AGE: 55 MARITAL STATUS: M DC PLAN ID: [id number] FACILITY: [facility] PRINTED ON: 01/26/21 10:45 CT All edits/amendments must be made on the electronic document DICTATION DATE: 01/26/215 ADULT EDUCATION MANAGER: STORM 01/26/21 1045 RPT#: [id number] DC DATE:01/24/21 STATUS: DIS IN [facility] [address] [place] [address] END OF REPORT
--- NOTE | 2021-01-26 15:04 | MORECARE ---
CASE MANAGEMENT DISCHARGE SUMMARY PATIENT: SJ POWELL UNIT: [id number] ADM DATE: 01/10/21 AGE: 55 : 63 SEX: F ROOM/BED: D.5790 AUTHOR: EUSEBIA,DOC PHYSICIAN: REFERRING PHYSICIAN: OPAL DECKER DO DATE OF SERVICE: 01/26/21 Case Management Discharge Planning Summary COMMENTS ENTERED DATE: 01/24/21 19:00 CT COMMENT TYPE: Discharge Planning REVIEWER: Danny Sugar Patient left AMA ENTERED DATE: 01/24/21 3:14 CT COMMENT TYPE: Discharge Planning REVIEWER: Nataly Houser Patient is now agreeing to rehab [facility] inpatient, Rehab prescreen and auth pending with [facility]. CM will continue to follow and assist with d/c planning / needs. ENTERED DATE: 01/22/21 17:38 CT COMMENT TYPE: Discharge Planning REVIEWER: Nataly Houser LATE ENTRY 01/18/21 CM spoke with patient to complete initial dc planning assessment. CM educated patient on the CM role and verbal consent given by patient to complete assessment. Patient lives at home with family. Patient is independent. At discharge patient plans to return home and feels this is a safe discharge. CM discussed availability of home health, rehab services, and medical equipment. Patient states that she has home 02 that she uses at night with [employer]. Patient is refusing HHS or rehab at this time. Declination is signed. Patient will have family to transport home. Patient denied known discharge needs at this time. CM will continue to follow and will assist as needed with dc plans/needs. DCP REVIEW SUMMARY ANTICIPATED D/C DATE: EXPECTED LOS : CASE STATUS: DCP Initiated INITIAL REVIEW: 01/10/2021 INITIAL REVIEWER: Nataly Houser FINAL DISCHARGE DISPOSITION: 07 : Left AMA or Discontinued Care FINAL REVIEWER: Nataly Houser FINAL REVIEW DATE: 01/24/2021 DCP Focus Questions & Answers DCP Screen QUESTION: ANSWER High Risk Factors: : Hosp related to CHF, COPD, DM, End Stage Ds, CVA, CA DCP Evaluation QUESTION: ANSWER Patient and/or caregiver agree upon recommended discharge plan? : Yes Family / Caregiver's ability to cope with chronic illness: : a. Adequate (ability to meet patient's medical needs, ensures patient attends medical appts.) Patient's current cognitive status: : *Oriented to person, place, situation, time and present Patient gives permission to discuss discharge plans with: (name, relationship and number) : BEAN HODGE - DAUGHTER [phone] SALINA ANDREWS [phone] Patient's ability to cope with chronic illness : a. Adequate (0-3 ED visits in 6 mos., adequate financial resources, attends scheduled appts.) Alternate discharge plan (if recommended plan not agreed upon by patient and/or caregiver): : PATIENT REFUSED REHAB OR HHS Does the patient have the ability to pay for or attain post discharge needs / services? : Yes Functional screen assessment: : Noticeable poor ADL management Family / Caregiver's ability to cope with chronic illness: : a. Adequate (ability to meet patient's medical needs, ensures patient attends medical appts.) Physical Status: : Incontinent Is there a likelihood that the patient will require additional services to return to the preadmission environment? : Yes Living Arrangements: : Home with Spouse/Significant Other Partial Dependence, assistance required for: : Ambulation / Mobility Results of this evaluation have been discussed with: : Patient Patient with capacity for self-care or can be cared for in same environment as prior to hospitalization? : Yes Living arrangements comments: : LIVES WITH FIANCE Baseline cognitive status: : *Oriented to person, place, situation, time and present Physical environment modification needed / anticipated for discharge: : N/A Comments: : PATIENT MAY REQUIRE PORTABLE 02 AND POSSIBLY NEBULIZER OR TRILOGY Preadmission facility can/cannot provide post hospital level of care needs: : Can - at same level of care as preadmission Medication Management: : Patient states can afford medications Planned post hospital services available for patient? : N/A Pharmacy name(s): : [facility] Planned post hospital services covered by insurance plan? : N/A Does Patient have transportation to get home and to follow-up medical appointments when discharged from the hospital? : Yes Would patient like to participate in any Care Coordination programs (if applicable): : Not applicable Does the patient have electricity at home? : Yes Does the patient have running water in their house? : Yes Equipment in use: : Home Oxygen with Nasal Cannula Equipment agency name and contact information: : [facility] Mental health screen: : No mental health history Resources / Services in place: : None DCP Re-evaluation QUESTION: ANSWER Would patient like to participate in any Care Coordination programs (if applicable): : Not applicable PATIENT: SJ POWELL ENCOUNTER: [id number] MEDICAL RECORD#: [id number] ADMISSION DATE: 01/10/2021 DISCHARGE DATE: 01/24/2021 ATTENDING MD: OPAL WASHBURN : AGE: 55 MARITAL STATUS: M DC PLAN ID: [id number] FACILITY: [facility] PRINTED ON: 01/26/21 15:04 CT All edits/amendments must be made on the electronic document DICTATION DATE: 01/26/21 1504 FELT HOOKER: STORM 01/26/21 1504 RPT#: [id number] DC DATE:01/24/21 STATUS: DIS IN [facility] [address] [place] [address] END OF REPORT
--- NOTE | 2021-01-26 23:22 | MORECARE ---
CASE MANAGEMENT DISCHARGE SUMMARY PATIENT: SJ POWELL UNIT: [id number] ADM DATE: 01/10/21 AGE: 55 : 63 SEX: F ROOM/BED: D.5840 AUTHOR: EUSEBIA,DOC PHYSICIAN: REFERRING PHYSICIAN: OPAL DECKER DO DATE OF SERVICE: 01/26/21 Case Management Discharge Planning Summary COMMENTS ENTERED DATE: 01/24/21 19:00 CT COMMENT TYPE: Discharge Planning REVIEWER: Danny Sugar Patient left AMA ENTERED DATE: 01/24/21 3:14 CT COMMENT TYPE: Discharge Planning REVIEWER: Nataly Houser Patient is now agreeing to rehab [facility] inpatient, Rehab prescreen and auth pending with [facility]. CM will continue to follow and assist with d/c planning / needs. ENTERED DATE: 01/22/21 17:38 CT COMMENT TYPE: Discharge Planning REVIEWER: Nataly Houser LATE ENTRY 01/18/21 CM spoke with patient to complete initial dc planning assessment. CM educated patient on the CM role and verbal consent given by patient to complete assessment. Patient lives at home with family. Patient is independent. At discharge patient plans to return home and feels this is a safe discharge. CM discussed availability of home health, rehab services, and medical equipment. Patient states that she has home 02 that she uses at night with [employer]. Patient is refusing HHS or rehab at this time. Declination is signed. Patient will have family to transport home. Patient denied known discharge needs at this time. CM will continue to follow and will assist as needed with dc plans/needs. DCP REVIEW SUMMARY ANTICIPATED D/C DATE: EXPECTED LOS : CASE STATUS: DCP Initiated INITIAL REVIEW: 01/10/2021 INITIAL REVIEWER: Nataly Houser FINAL DISCHARGE DISPOSITION: 07 : Left AMA or Discontinued Care FINAL REVIEWER: Nataly Houser FINAL REVIEW DATE: 01/24/2021 DCP Focus Questions & Answers DCP Screen QUESTION: ANSWER High Risk Factors: : Hosp related to CHF, COPD, DM, End Stage Ds, CVA, CA DCP Evaluation QUESTION: ANSWER Patient and/or caregiver agree upon recommended discharge plan? : Yes Family / Caregiver's ability to cope with chronic illness: : a. Adequate (ability to meet patient's medical needs, ensures patient attends medical appts.) Patient's current cognitive status: : *Oriented to person, place, situation, time and present Patient gives permission to discuss discharge plans with: (name, relationship and number) : BEAN HODGE - DAUGHTER [phone] SALINA ANDREWS [phone] Patient's ability to cope with chronic illness : a. Adequate (0-3 ED visits in 6 mos., adequate financial resources, attends scheduled appts.) Alternate discharge plan (if recommended plan not agreed upon by patient and/or caregiver): : PATIENT REFUSED REHAB OR HHS Does the patient have the ability to pay for or attain post discharge needs / services? : Yes Functional screen assessment: : Noticeable poor ADL management Family / Caregiver's ability to cope with chronic illness: : a. Adequate (ability to meet patient's medical needs, ensures patient attends medical appts.) Physical Status: : Incontinent Is there a likelihood that the patient will require additional services to return to the preadmission environment? : Yes Living Arrangements: : Home with Spouse/Significant Other Partial Dependence, assistance required for: : Ambulation / Mobility Results of this evaluation have been discussed with: : Patient Patient with capacity for self-care or can be cared for in same environment as prior to hospitalization? : Yes Living arrangements comments: : LIVES WITH FIANCE Baseline cognitive status: : *Oriented to person, place, situation, time and present Physical environment modification needed / anticipated for discharge: : N/A Comments: : PATIENT MAY REQUIRE PORTABLE 02 AND POSSIBLY NEBULIZER OR TRILOGY Preadmission facility can/cannot provide post hospital level of care needs: : Can - at same level of care as preadmission Medication Management: : Patient states can afford medications Planned post hospital services available for patient? : N/A Pharmacy name(s): : [facility] Planned post hospital services covered by insurance plan? : N/A Does Patient have transportation to get home and to follow-up medical appointments when discharged from the hospital? : Yes Would patient like to participate in any Care Coordination programs (if applicable): : Not applicable Does the patient have electricity at home? : Yes Does the patient have running water in their house? : Yes Equipment in use: : Home Oxygen with Nasal Cannula Equipment agency name and contact information: : [facility] Mental health screen: : No mental health history Resources / Services in place: : None DCP Re-evaluation QUESTION: ANSWER Would patient like to participate in any Care Coordination programs (if applicable): : Not applicable PATIENT: SJ POWELL ENCOUNTER: [id number] MEDICAL RECORD#: [id number] ADMISSION DATE: 01/10/2021 DISCHARGE DATE: 01/24/2021 ATTENDING MD: OPAL WASHBURN : AGE: 55 MARITAL STATUS: M DC PLAN ID: [id number] FACILITY: [facility] PRINTED ON: 01/26/21 23:22 CT All edits/amendments must be made on the electronic document DICTATION DATE: 01/26/212321 COMMUNITY ADMINISTRATOR: STORM 01/26/212321 RPT#: [id number] DC DATE:01/24/21 STATUS: DIS IN [facility] [address] [place] [address] END OF REPORT
== END 2021-01-24 14:46 | disposition left against medical advice (07) | DRG 193 ==
LOC: D.ER 08:36 → D.M2 14:52
PROVIDERS: Emergency Medicine; Family Medicine; Internal Medicine Pulmonary Disease; ADMIT Family Medicine; ATTEND Family Medicine
PROC: 5A09457 Assistance with Respiratory Ventilation, 24-96 Consecutive Hours, Continuous Positive Airway Pressure (ICD-10-PCS; 2021-01-14)
PROC: 05HM33Z Insertion of Infusion Device into Right Internal Jugular Vein, Percutaneous Approach (ICD-10-PCS; principal; 2021-01-16)
PROC: B543ZZA Ultrasonography of Right Jugular Veins, Guidance (ICD-10-PCS; 2021-01-16)
DX: J18.9 Pneumonia, unspecified organism (principal); J96.21 Acute and chronic respiratory failure with hypoxia; J98.11 Atelectasis; I50.30 Unspecified diastolic (congestive) heart failure; J43.9 Emphysema, unspecified; F17.200 Nicotine dependence, unspecified, uncomplicated; I34.0 Nonrheumatic mitral (valve) insufficiency; I11.0 Hypertensive heart disease with heart failure; T46.2X5A Adverse effect of other antidysrhythmic drugs, initial encounter; I48.91 Unspecified atrial fibrillation; Z86.73 Personal history of transient ischemic attack (TIA), and cerebral infarction without residual deficits